=== PATIENT | female | born 1970 | race Caucasian/White ===

== ENCOUNTER → 2018-03-29 | Outpatient (CLI) | payer MEDICAID ==
--- NOTE | 2018-03-30 07:52 | MM ---
Reason for exam: screening (asymptomatic). Last mammogram was performed 3 years and 1 month ago. Physical Findings: A clinical breast exam by your physician is recommended on an annual basis and results should be correlated with mammographic findings. MG Screening Mammo w CAD Bilateral CC and MLO view(s) were taken. Prior study comparison: March 05, 2015, bilateral MG screening mammo w CAD. March 16, 2014, bilateral MG work up mamm w CAD BILAT. The breast tissue is heterogeneously dense. This may lower the sensitivity of mammography. Global asymmetry 12 o'clock left breast gradually increased from 2013. ASSESSMENT: Incomplete: need additional imaging evaluation, BI-RAD 0 RECOMMENDATION: Special view mammogram of the left breast. If lesion persists on supplemental views, image directed ultrasound is recommended. [facility] will attempt to contact patient to return for supplemental views and ultrasound if indicated.
== END | disposition home or self-care (01) ==
LOC: RADMAMWWP 06:49
PROVIDERS: ATTEND Internal Medicine Geriatric Medicine
DX: Z12.31 Encounter for screening mammogram for malignant neoplasm of breast (principal)
CPT/HCPCS: 77067

== ENCOUNTER → 2018-04-27 | Outpatient (CLI) | payer MEDICAID ==
--- NOTE | 2018-04-30 16:12 | MM ---
Reason for exam: additional evaluation requested from abnormal screening. Last mammogram was performed 1 month ago. Physical Findings: Nurse Summary: There is a 0.5 x 0.5 cm dominant mass at 1 o'clock. MG 3D Work Up W/Cad LT Spot compression CC, spot compression MLO, and LM view(s) were taken of the left breast. Prior study comparison: March 29, 2018, bilateral MG screening mammo w CAD. March 05, 2015, bilateral MG screening mammo w CAD. The breast tissue is heterogeneously dense. This may lower the sensitivity of mammography. There is a 24 mm lobulated density with indistinct margins in the left breast anterior middle central position. This does not go completely away on additional views. ASSESSMENT: Incomplete: need additional imaging evaluation, BI-RAD 0 RECOMMENDATION: Ultrasound of the left breast.
--- NOTE | 2018-04-30 16:16 | USB ---
US Breast Workup LT Left complete breast ultrasound includes all four quadrants, the retroareolar region and axilla. Finding demonstrates a 0.6 x 0.4 x 0.5 cm oval cystic lesion at 12 o'clock . These results were verbally communicated with the patient and result sheet given to the patient on 04/27/18. ASSESSMENT: Probably benign, BI-RAD 3 RECOMMENDATION: Ultrasound and follow-up diagnostic mammogram of the left breast in 6 months.
== END | disposition home or self-care (01) ==
LOC: RADMAMWWP 09:57
PROVIDERS: ATTEND Internal Medicine Geriatric Medicine
DX: R92.8 Other abnormal and inconclusive findings on diagnostic imaging of breast (principal)
CPT/HCPCS: 77061; 77065

== ENCOUNTER 2021-01-07 16:28 | Emergency (ER) | payer MEDICAID ==
[2021-01-07] MEDS ORDERED: LIDOCAINE 1% INJ 10MG/ML (20 ML MDV) SQ ONE (17:29)
--- NOTE | 2021-01-07 19:33 | ED ---
Skin/Abscess/FB HPI - General Chief complaint: Skin/Abscess/Foreign Body Stated complaint: skin issues/pain on side Time Seen by Provider: 01/07/21 17:19 Source: patient, RN notes reviewed Mode of arrival: ambulatory Limitations: no limitations - History of Present Illness Initial comments: Patient is a 50-year-old female that presents emergency department complaining of a right sided rib abscess patient notes that she thought she had a bug bite got infected patient was she went to Going got Keflex but has not gotten any better. She denied any other symptoms or complaints at this time. She was otherwise well-appearing. She notes that it is tender and has gotten slightly worse. She denied chest pain first breath headache nausea vomiting diarrhea comes patient fever fatigue chills. - Related Data Previous Rx's Medication Instructions Recorded Sulfamethox-Tmp 800-160Mg [Bactrim 1 each PO Q12HR #20 tab 01/07/21 Ds] Allergies Allergy/AdvReac Type Severity Reaction Status Date / Time iodine Allergy Rash/Hives Verified 01/07/21 17:06 Review of Systems ROS Statement: Those systems with pertinent positive or pertinent negative responses have been documented in the HPI. ROS Other: All systems not noted in ROS Statement are negative. Past Medical History Past Medical History: Asthma History of Any Multi-Drug Resistant Organisms: None Reported Past Surgical History: Cholecystectomy Past Psychological History: No Psychological Hx Reported Smoking Status: Never smoker Past Alcohol Use History: None Reported Past Drug Use History: None Reported General Exam Limitations: no limitations General appearance: alert, in no apparent distress, obese Head exam: Present: atraumatic, normocephalic, normal inspection Eye exam: Present: normal appearance, PERRL, EOMI. Absent: scleral icterus, conjunctival injection, periorbital swelling ENT exam: Present: normal exam, mucous membranes moist Neck exam: Present: normal inspection Respiratory exam: Present: normal lung sounds bilaterally. Absent: respiratory distress, wheezes, rales, rhonchi, stridor Cardiovascular Exam: Present: regular rate, normal rhythm, normal heart sounds. Absent: systolic murmur, diastolic murmur, rubs, gallop, clicks GI/Abdominal exam: Present: soft, normal bowel sounds. Absent: distended, tenderness, guarding, rebound, rigid Extremities exam: Present: normal inspection, full ROM, normal capillary refill. Absent: tenderness, pedal edema, joint swelling, calf tenderness Neurological exam: Present: alert, oriented X3 Psychiatric exam: Present: normal affect, normal mood Skin exam: Present: warm, dry, intact, normal color. Absent: rash Expanded Type of lesion: Present: abscess (Right upper abdomen measuring 4 cm x 4 cm.) Course Vital Signs 01/07/21 17:03 Temperature 98.9 F Pulse Rate 90 Respiratory 16 Rate Blood Pressure 194/89 O2 Sat by Pulse 98 Oximetry Procedures - Incision & Drainage Consent Obtained: verbal consent Site: abdomen (Right side over the ribs.) Anesthetic Used: lidocaine 1% Amount (mLs): 5 I&D Cleaning Method: Alcohol Wipe Sterile Field Used?: Yes Scalpel Used: #11 Needle Aspiration Performed?: Yes I&D Drainage Obtained: Pus, Blood Culture Obtained?: Yes Patient Tolerated Procedure: well, no complications Medical Decision Making - Medical Decision Making 50-year-old female with a right sided rib cage abscess. Lidocaine ordered. Patient tolerated incision and drainage well. She'll be sent and antibiotics to her pharmacy to go with her Keflex. Case discussed with Dr. Ambriz, patient discharge home in stable condition. Disposition Clinical Impression: Abscess Disposition: HOME SELF-CARE Condition: Stable Instructions (If sedation given, give patient instructions): Abscess (ED), Abscess Incision and Drainage (ED) Additional Instructions: Please return to the Emergency Department if symptoms worsen or any other concerns. Follow-up with primary care 1-2 days. Take antibiotics as prescribed until complete. Use warm compresses to keep it draining. Is patient prescribed a controlled substance at d/c from ED?: No Referrals: Guillermo Paz MD [Primary Care Provider] - 1-2 days Time of Disposition: 19:33
[2021-01-07 19:47] VITALS: BP 166/95; PULSE 77; RESP 18; TEMP 98.2
== END 2021-01-07 19:41 | disposition home or self-care (01) ==
LOC: EC 16:28
DX: L02.213 Cutaneous abscess of chest wall (principal); L02.211 Cutaneous abscess of abdominal wall; J45.909 Unspecified asthma, uncomplicated; Z88.8 Allergy status to other drugs, medicaments and biological substances; Z90.49 Acquired absence of other specified parts of digestive tract
CPT/HCPCS: 87070; 87205; 10060; 99282; J2001

== ENCOUNTER → 2021-10-31 | Outpatient (CLI) | payer MEDICAID ==
--- NOTE | 2021-10-31 12:15 | US ---
EXAMINATION TYPE: US liver DATE OF EXAM: 10/31/2021 COMPARISON: NONE CLINICAL HISTORY: 50-year-old female R17 Elevated total bilirubin, JAUNDICE. TECHNIQUE: Multiple sonographic images of the right upper quadrant are obtained. FINDINGS: EXAM MEASUREMENTS: Liver Length: 17.2 cm Gallbladder: Surgically absent CBD: 0.8 cm Right Kidney: 12.2 x 4.4 x 5.3 cm Pancreas: Portions visualized wnl, the pancreatic tail is obscured by bowel gas Liver: Borderline in size, echogenic and attenuating. Gallbladder: cholecystectomy Evidence for sonographic Ivy's sign: no CBD: echogenic foci in CBD measuring 5mm, dilated Right Kidney: there appears to be a superior hypoechoic mass measuring 5.2 x 5.3 x 6.0cm. No hydronep hrosis. IMPRESSION: 1. Borderline hepatomegaly (17.2 cm) with at least moderate hepatic steatosis. 2. A 5 mm echogenic focus projecting within the bile duct. Choledocholithiasis difficult to exclude. Correlate with alkaline phosphatase and bili levels. ERCP or MRCP if clinically indicated. The bile d uct itself is mildly dilated at 8 mm. This caliber may be acceptable given postcholecystectomy status . 3. Apparent hypoechoic mass measuring 6.0 cm upper pole of the right kidney. Further renal mass meghann col CT recommended to further evaluate.
== END | disposition home or self-care (01) ==
LOC: RADUSWWP 09:20
PROVIDERS: ATTEND Family Medicine
DX: R17 Unspecified jaundice (principal)
CPT/HCPCS: 76705; 99213

== ENCOUNTER → 2021-11-14 | Outpatient (CLI) | payer MEDICAID | END | disposition home or self-care (01) | LOC: RADCTMAIN 13:42 | PROVIDERS: ATTEND Family Medicine | DX: Z53.9 Procedure and treatment not carried out, unspecified reason (principal) ==

== ENCOUNTER → 2022-01-13 | Outpatient (CLI) | payer MEDICAID ==
--- NOTE | 2022-01-13 20:01 | MR ---
EXAMINATION TYPE: MR kidney wo/w con DATE OF EXAM: 01/13/2022 7:11 PM INDICATION: Patient age:Female; 51 years old; Reason for study: N28.89 OTHER SPECIFIED DISORDERS OF KIDNEY AND URE;. Abnormal US. COMPARISON: Ultrasound 10/31/2021 TECHNIQUE: Multiplanar multi-sequence imaging was performed with and without contrast. Post contrast imaging was performed IV Contrast: 10 cc Gadavist FINDINGS: LOWER CHEST: No gross irregularity. ABDOMEN Liver: Diffuse signal dropout on phase imaging involving the liver. Gallbladder and Bile ducts: Unremarkable. Pancreas: Unremarkable. Spleen: There is a T2 in apparent low T1 signal lesion within the spleen measuring up to 2.2 cm seen on postcontrast imaging only which does not demonstrate enhancement compared to background splenic ti ssue. Delayed imaging it becomes less apparent. Adrenal glands: A right adrenal 2.3 cm myelolipoma is suggested.. The left adrenal gland is unremarka ble. Kidneys: Superior right renal pole heterogenous mass which is predominantly intermediate T2 and low T 1 signal. Measures up to 7.4 cm is primarily exophytic off the superior renal pole. Postcontrast enha ncement demonstrates enhancement most pronounced along the periphery with some area of nonenhancement centrally which could represent cystic degeneration and/or necrosis. No evidence of involvement with in the renal vein. The tumor abuts the inferior margin of the liver. Stomach and Bowel: Few scattered clonic diverticula present. Peritoneum: No evidence of pneumoperitoneum, free fluid. Prominent portacaval lymph node measuring u p to 12 mm and gastropancreatic ligament lymph node measuring up to 11 mm. Vasculature: Unremarkable. No aortic aneurysm. Abdominal wall: Unremarkable. Musculoskeletal: The osseous structures appear intact. IMPRESSION: 1. Right superior renal pole mass concerning for renal cell carcinoma until proven otherwise. RENAL Nephrometry Score 8p. 2. Hepatic steatosis 3. Right adrenal myelolipoma suggested. 4. Indeterminate splenic lesion which is only seen on postcontrast T1 imaging and progressively appe ars to enhance. Findings may represent an atypical hemangioma versus sclerosing angiomatoid nodular t ransformation (CARLOTA). Attention on follow-up imaging.
== END | disposition home or self-care (01) ==
LOC: RADMRIMAIN 18:20
PROVIDERS: ATTEND Nurse Practitioner Family
DX: N28.89 Other specified disorders of kidney and ureter (principal)
CPT/HCPCS: 74183; A9585

== ENCOUNTER → 2022-02-24 | Outpatient (CLI) | payer MEDICAID ==
[2022-02-24 11:10] LABS: African American GFR (CKD) >90 (>60 ml/min/1.73 sqM); Blood Urea Nitrogen 9 mg/dL (7-17); Non-African American GFR(CKD) >90 (>60 ml/min/1.73 sqM)
--- NOTE | 2022-02-24 15:19 | CT ---
EXAMINATION TYPE: CT chest w con DATE OF EXAM: 02/24/2022 COMPARISON: MRI kidney 01/13/2022 HISTORY: 51-year-old female D41.01, kidney cancer newly dx with kidney failure TECHNIQUE: Contiguous axial scanning of the chest after the administration of 70 mL of Isovue 300. C oronal/sagittal reconstructions performed. CT DLP: 1050mGycm. Automatic exposure control utilized for a dose reduction. FINDINGS: Heart normal size without pericardial effusion. Aorta normal caliber with conventional arch vessel branching anatomy. No thoracic lymphadenopathy by CT size criteria. Suspicious 5 mm anterior right midlung pulmonary nodule, axial image 23. Suspicious 1.3 cm nodule lef t midlung along the major fissure, axial image 24. Approximately 4-5 adjacent satellite nodules measu ring up to 7 mm. 3 additional 3 nodules measuring 78 mm superior segment left lower lobe. No consolidation or pleural effusion. Visualized upper abdomen shows diffuse low-attenuation of the hepatic,. Patient's known right upper p ole renal mass measuring at least 7.4 cm, partially visualized. This may be larger compared to 6.7 cm on 01/13/2022. Cholecystectomy clips. Bones: No osseous destructive process. IMPRESSION: 1. A few pulmonary nodules, left greater than right. Measuring up to 1.3 cm. Given the patient's RCC, findings are suspicious for metastatic pulmonary nodules. 2. Hepatic steatosis. 3. Partially visualized known right upper pole renal mass. This may be slightly larger at 7.4 cm vers us 6.7 cm, previously.
== END | disposition home or self-care (01) ==
LOC: RADCTMAIN 10:11
PROVIDERS: ATTEND Urology
DX: D41.01 Neoplasm of uncertain behavior of right kidney (principal); R91.8 Other nonspecific abnormal finding of lung field; K76.0 Fatty (change of) liver, not elsewhere classified
CPT/HCPCS: 82565; 84520; 71260; 36415; Q9967

== ENCOUNTER → 2022-03-10 | Outpatient (CLI) | payer MEDICAID ==
[2022-03-10 19:48] LABS: Basophils # (A) 0.08 X 10*3/uL (0.00-0.10); Eosinophils # (A) 0.45 X 10*3/uL (0.04-0.35); Eosinophils % (A) 5.4 %; HCT 49.6 % (37.2-46.3); HGB 15.4 g/dL (12.0-15.0); Immature Grans, Automated 0.1 %; Lymphocytes # (A) 1.84 X 10*3/uL (0.90-5.00); Lymphocytes % (A) 22.1 %; MCH 25.4 pg (27.0-32.0); MCV 81.7 fL (80.0-97.0); Mean Platelet Volume 12.2 fL (9.5-12.2); Monocytes # (A) 0.49 X 10*3/uL (0.20-1.00); Monocytes % (A) 5.9 %; NRBC Per 100 WBC 0 /100 WBCS (0.0-0.0); Neutrophils # (A) 5.44 X 10*3/uL (1.80-7.70); Neutrophils % (A) 65.5 %; Platelet Count 168 X 10*3/uL (140-440); RBC 6.07 X 10*6/uL (4.10-5.20); RBC Morphology NORMAL; RDW 17.5 % (11.5-14.5); WBC 8.31 X 10*3/uL (4.50-10.00)
[2022-03-10 20:02] LABS: African American GFR (CKD) 85.2 (60.0-200.0); Anion Gap 17.1 mmol/L (10.00-18.00); BUN/Creat Ratio 10.33 Ratio (12.00-20.00); Blood Urea Nitrogen 9.3 mg/dL (9.0-27.0); Calcium 10.2 mg/dL (8.7-10.3); Carbon Dioxide 21.9 mmol/L (20.0-27.5); Non-African American GFR(CKD) 73.5 (60.0-200.0); Potassium 4.4 mmol/L (3.5-5.5)
== END | disposition home or self-care (01) ==
LOC: LABPAT 09:50
PROVIDERS: ATTEND Urology
DX: Z01.812 Encounter for preprocedural laboratory examination (principal); D41.01 Neoplasm of uncertain behavior of right kidney
CPT/HCPCS: 80048; 85025

== ENCOUNTER 2022-03-20 05:56 | Inpatient (IN) | payer MEDICAID ==
--- NOTE | 2022-03-19 21:13 | P.GSHP ---
History of Present Illness H&P Date: 03/19/22 Chief Complaint: Right renal mass The patient is a 51-year-old white female recently found to have a 7.4 cm right upper pole enhancing renal mass. She denies hematuria and flank pain. She was advised that the mass is likely malignant. CT scan of the chest shows several small pulmonary nodules. A PET/CT scan revealed the pulmonary lesions to be non-FDG avid. It is thus assumed that she does not have pulmonary metastases, though she is aware that this may be a false-negative study. Following a thorough discussion of these results, she has elected to undergo a right radical nephrectomy. - Constitutional Constitutional: Reports fatigue - Genitourinary (Female) Genitourinary: Denies flank pain, Denies hematuria Past Medical History Past Medical History: Asthma, Thyroid Disorder Additional Past Medical History / Comment(s): anemia, mass on kidney probable cancer, History of Any Multi-Drug Resistant Organisms: MRSA Date of last positivie culture/infection: 01/07/21 MDRO Source:: mrsa abdomen Past Surgical History: Cholecystectomy Past Anesthesia/Blood Transfusion Reactions: Motion Sickness Additional Past Anesthesia/Blood Transfusion Reaction / Comment(s): occasional motion sickness Smoking Status: Never smoker Medications and Allergies Home Medications Medication Instructions Recorded Confirmed Type Docusate [Colace] 1 tab PO DAILY 03/17/22 03/17/22 History Ferrous Sulfate [Feosol] 325 mg PO DAILY 03/17/22 03/17/22 History Fluticasone Nasal [place] [Flonase 1 spray INHALATION DAILY 03/17/22 03/17/22 History Nasal [place]] Levothyroxine Sodium [Synthroid] 50 mcg PO DAILY 03/17/22 03/17/22 History Loratadine 10 mg PO DAILY 03/17/22 03/17/22 History Umeclidinium Brm/Vilanterol Tr 1 puff INHALATION DAILY 03/17/22 03/17/22 History [Anoro Ellipta 62.5-25 Mcg INH] Allergies Allergy/AdvReac Type Severity Reaction Status Date / Time iodine Allergy Rash/Hives Verified 03/17/22 17:12 Surgical - Exam - General well developed, well nourished, no distress - Neck no masses, trachea midline - Respiratory normal respiratory effort - Abdomen Abdomen: soft, non tender, no guarding, no rigid, no rebound - Psychiatric oriented to time, oriented to person, oriented to place, speech is normal, memory intact Assessment and Plan (1) Neoplasm of uncertain behavior of right kidney Status: Acute Code(s): D41.01 - NEOPLASM OF UNCERTAIN BEHAVIOR OF RIGHT KIDNEY SNOMED Code(s): [id number] Plan: Right radical nephrectomy. The procedure has been reviewed in detail with the patient. She has been made aware of potential risks, which include anesthesia, bleeding, infection, bowel injury, hepatic injury, postoperative paralytic ileus, chylous ascites, and wound complications.
[2022-03-20] MEDS ORDERED: DEXAMETHASONE SOD PHOSPHATE 4 MG/ML 1 ML VIAL IV ONE (06:09)
[2022-03-20] MEDS ORDERED: HYDROmorphone 0.5 MG/0.5 ML SYRINGE IVP PRN (06:09)
[2022-03-20] MEDS ORDERED: ONDANSETRON 4 MG/2 ML VIAL IVP ONE (06:09)
[2022-03-20] MEDS ORDERED: LACTATED RINGERS 1,000 ML IV ONE ×4 (06:25→14:13)
[2022-03-20 06:56] LABS: INR 1.1 (<1.2); Prothrombin Time 11.1 sec (9.0-12.0)
[2022-03-20] MEDS ORDERED: SCOPOLAMINE 1 MG/72 HR PATCH TRANSDERM ONE (06:58)
[2022-03-20] MEDS ORDERED: MIDAZOLAM 2 MG/2 ML VIAL IVP ONE (07:04)
[2022-03-20] MEDS ORDERED: diphenhydrAMINE 50 MG/ML 1 ML VIAL IVP PRN (07:33)
[2022-03-20] MEDS ORDERED: NALOXONE 0.4 MG/ML 1 ML VIAL IV PRN (07:33)
[2022-03-20] MEDS ORDERED: NALBUPHINE 10 MG/ML (1 ML AMP) IV PRN (07:33)
[2022-03-20] MEDS ORDERED: LIDOCAINE 2% INJ 20 MG/ML (2 ML VIAL) ONE (07:35)
[2022-03-20] MEDS ORDERED: ALBUMIN HUMAN 5% (25gm) 500 ML VIAL IVPB ONE (07:35)
[2022-03-20] MEDS ORDERED: GLYCOPYRROLATE 0.2 MG/ML 2 ML VIAL ONE (07:35)
[2022-03-20] MEDS ORDERED: ePHEDrine 50 MG/ML 1 ML VIAL ONE (07:35)
[2022-03-20] MEDS ORDERED: ROCURONIUM 10 MG/ML (5 ML VIAL) IV ONE (07:35)
[2022-03-20] MEDS ORDERED: SUCCINYLCHOLINE CHLORIDE 200 MG/10 ML VIAL IV ONE (07:35)
[2022-03-20] MEDS ORDERED: MIDAZOLAM 2 MG/2 ML VIAL ONE (07:35)
[2022-03-20] MEDS ORDERED: PHENYLEPHRINE-0.9% NACL SYG 1,000 MCG/10 ML SYRINGE ONE (07:35)
[2022-03-20] MEDS ORDERED: PROPOFOL 10 MG/ML 20 ML VIAL IV ONE (07:35)
[2022-03-20] MEDS ORDERED: fentaNYL (PF) 50 MCG/ML 2 ML AMP ONE (07:35)
[2022-03-20] MEDS ORDERED: NEOSTIGMINE 1 MG/ML 10 ML VIAL ONE (07:35)
--- NOTE | 2022-03-20 07:38 | P.ANPRN ---
Procedure Note - Anesthesia - Epidural/Spinal Epidural Continuous Time Out Performed: Yes Date of Procedure: 03/20/22 Procedure Start Time: 07:03 Procedure Stop Time: : Location of Patient: PreOp Indication: Acute Post-Operative Pain, Requested by Surgeon (madi) Sedation Type: Sedate with meaningful contact maintained Preparation: Sterile Dressing Number of Attempts: 3 (attempt T10 x1, L1-2x2. Success at L1-2) Position: Sitting Catheter Depth at Skin (cm): 13 Catheter: Indwelling Needle Guage: 18 Injectate: lidocaine 1% 5cc. Narrative: 5cc Test dose. no CV no BUILDING CONSULTANT no paresthesias on injection. Patient tolerated procedure well. Blood Aspirated: No Pain Paresthesia on Injection Noted: No Events: Uneventful and Well Tolerated
[2022-03-20] MEDS: ROPIVACAINE 250 MG, HYDROMORPHONE (PF) 5 MG in SODIUM CHLORIDE 0.9% 200 ML EPIDURAL PRN ×3 (10:36→14:18)
[2022-03-20] MEDS ORDERED: HYDROmorphone 1 MG/ML 1 ML SYRINGE IVP PRN (10:42)
[2022-03-20] MEDS: DEXTROSE 5%-0.45% NACL 1,000 ML IV SCH (14:55)
--- NOTE | 2022-03-20 15:06 | P.OP ---
Date of Procedure: 03/20/22 Preoperative Diagnosis: Right renal mass Postoperative Diagnosis: Same Procedure(s) Performed: Right radical nephrectomy Anesthesia: SOLEDAD Surgeon: Elliott Saavedra Heat Seal Operator #1: Maadn Raza Estimated Blood Loss (ml): 750 IV fluids (ml): 2,400 Pathology: other (Right kidney and adrenal gland) Condition: stable Disposition: PACU Indications for Procedure: The patient is a 51-year-old white female recently found to have a 7.4 cm right upper pole enhancing renal mass. She denies hematuria and flank pain. She was advised that the mass is likely malignant. CT scan of the chest shows several small pulmonary nodules. A PET/CT scan revealed the pulmonary lesions to be non-FDG avid. It is thus assumed that she does not have pulmonary metastases, though she is aware that this may be a false-negative study. Following a thorough discussion of these results, she has elected to undergo a right radical nephrectomy. Operative Findings: Large right upper pole renal mass. No evidence of extrarenal disease. Description of Procedure: The patient was taken to the operating room and placed in the supine position. After being given general anesthesia, the abdomen was prepped and draped sterilely. A right-sided chevron incision was made using the scalpel. The Bovie electrocautery was used to incise the subcutaneous tissues and muscular layers of the abdominal wall down to the peritoneum. The peritoneum was then carefully entered, and opened the full length of the incision. The abdomen was examined, and no abnormalities were noted other than the renal mass. Spec ifically, there was no evidence of malignancy elsewhere within the abdomen. The Bookwalter retractor was used for exposure. The peritoneum was incised at the line of Toldt, and a Hieke maneuver was performed. This exposed the right kidney and the inferior vena cava. The gonadal vein was isolated. It was then ligated using 2-0 silk ties and divided. Dissection was then performed alongside the lateral aspect of the inferior vena cava. Lymphoadipose tissue was clipped and divided up to the renal hilum. There was no evidence of adenopathy. The hilar dissection was difficult. An artery to the lower pole of the right kidney was identified in addition to the main right renal artery. Both were ligated twice proximally and once distally using 2-0 silk ties and divided. The right renal vein was then likewise ligated twice proximally and distally. The remaining hilar tissues were clipped and divided at this time. The majority of the blood loss during the procedure occurred during the hilar dissection. Once the hilar dissection had been completed, the inferior aspect of the dissection was performed. The tail of Gerota's fascia was isolated, and the ureter was clipped and divided. Likewise, the gonadal vessels were ligated and divided. Blunt dissection was then performed to dissect the kidney off of the posterior abdominal wall. Superiorly, the dissection was performed cephalad to the adrenal gland so that the adrenal gland could be removed intact. These superior attachments were clipped and divided. This was somewhat difficult, given the patient's body habitus and the size of the tumor. After removing the specimen, a 1.5 centimeter capsular tear of the underside of the liver was noted, which bled lightly. This was mostly controlled with electrocautery, and Surgicel powder was then applied with pressure. Excellent hemostasis was attained. Additional Surgicel was placed over the superior attachments to the adrenal gland, though hemostasis was very good even before this was applied. The surgical field was examined for hemostasis. Hemostasis within the entire surgical field was excellent at this time. The Bookwalter retractor was removed. The abdominal contents were allowed to return to their normal location. Each individual muscle layer of the anterior abdominal wall was closed using #1 Vicryl suture in a running fashion. Hemostasis within the subcutaneous tissues was excellent. The skin was closed using beverly. A sterile gauze dressing was applied over the incision. All sponge and needle counts were correct. The patient tolerated the procedure well was taken to the recovery room in stable condition.
[2022-03-20] MEDS: LACTATED RINGERS 1,000 ML IV SCH (15:50)
[2022-03-21] MEDS: DEXTROSE 5%-0.45% NACL 1,000 ML IV SCH ×3 (00:55→11:02)
[2022-03-21] MEDS: LACTATED RINGERS 1,000 ML IV SCH (06:20)
[2022-03-21] MEDS: LEVOTHYROXINE 50 MCG TAB PO SCH (06:34)
[2022-03-21] MEDS: ROPIVACAINE 250 MG, HYDROMORPHONE (PF) 5 MG in SODIUM CHLORIDE 0.9% 200 ML EPIDURAL PRN (07:28)
[2022-03-21] MEDS: IPRATROPIUM 0.5 MG/2.5 ML NEBU INHALATION SCH ×4 (07:39→20:21)
[2022-03-21] MEDS: FORMOTEROL FUMARATE 20 MCG/2 ML NEBU INHALATION SCH ×2 (07:39→20:21)
[2022-03-21] MEDS: DOCUSATE 100 MG CAP PO SCH (09:22)
[2022-03-21] MEDS: FLUTICASONE 50MCG/SPRAY NASAL 16GM EA NOSTRIL SCH (09:22)
[2022-03-21] MEDS: LORATADINE 10 MG TAB PO SCH (09:22)
--- NOTE | 2022-03-21 09:47 | P.PN ---
Subjective Progress Note Date: 03/21/22 Principal diagnosis: Right renal mass The patient is a 51-year-old female recently found to have a 7.4 cm right upper pole enhancing renal mass. No hematuria or flank pain. She was advised that the mass is likely malignant. CT scan of the chest shows several small pulmonary nodules. A PET/CT scan revealed the pulmonary lesions to be non-FDG avid. It is thus assumed that she does not have pulmonary metastases, though she is aware that this may be a false-negative study. She went to the OR on 03/20/[address] Saavedra and had an elective right radical nephrectomy. She tolerated the procedure well and was sent to the PACU in stable condition. Objective - Vital Signs Vital signs: Vital Signs Temp 98.3 F 03/21/22 08:00 Pulse 78 03/21/22 08:05 Resp 16 03/21/22 08:00 BP 101/67 03/21/22 08:00 Pulse Ox 93 L 03/21/22 08:00 FiO2 Intake & Output 03/20/22 03/21/22 03/21/22 18:59 06:59 18:59 Intake Total 2603.1 122 Output Total 1050 200 Balance 1553.1 -78 Weight 110.2 kg Intake: IV 2603.1 Intake, IV Titration 122 Amount Ropivacaine 250 mg 122 Hydromorphone (Pf) 5 mg In Sodium Chloride 0.9% 200 ml @ Per Protocol EPIDURAL .Q0M PRN Rx#: [id number] Output: Urine 300 200 Estimated Blood Loss 750 Other: Voiding Method Indwelling Catheter Indwelling Catheter - Exam General: Well developed, well nourished. No acute distress. HEENT: Head is atraumatic, normocephalic. Lungs: Respirations even and nonlabored, 2L NC Abdomen/GI: Soft + incisional tenderness. : Rdz catheter draining clear yellow urine Skin: Warm and dry, abdominal dressing CDI Neurologic: Awake, alert and oriented times 3. CN II-XII grossly intact. No focal deficits. Psychiatric: Appropriate mood and affect. Assessment and Plan Assessment: POD#!. No acute events over night. She states her pain has been well controlled with her epidural. She was encouraged to increase her activity level today. She denies any nausea or vomiting. Tmax 100.0, she is on 2L NC, vitals stable. Instructed to use incentive spirometer and cough/deep breath. Rdz catheter draining clear yellow urine. Abdominal dressing CDI. CBC and BMP pending. Nursing staff updated with plan of care. (1) Right renal mass Current Visit: Yes Status: Acute Code(s): N28.89 - OTHER SPECIFIED DISORDERS OF KIDNEY AND URETER SNOMED Code(s): 573291579 Plan: - Follow up with pending lab work - Increase Activity - Clear liquid diet - Continue Epidural - Keep Rdz catheter - IS 10 x hour while awake - Wean off O2, Maintain SPO2 > 92% - Anticipate discharge in 24-48 hours Impression and plan of care have been directed as dictated by the signing physician. Erica Baker nurse practitioner acting as scribe for signing physician. Erica Baker [facility] Palliative Care/Urology Spectralink [phone] Email: [email or web address]
[2022-03-21 10:43] LABS: HCT 33.8 % (37.2-46.3); MCH 25.8 pg (27.0-32.0); MCHC 29.6 g/dL (32.0-37.0); MCV 87.1 fL (80.0-97.0); Mean Platelet Volume 11.7 fL (9.5-12.2); NRBC Per 100 WBC 0 /100 WBCS (0.0-0.0); Platelet Count 220 X 10*3/uL (140-440); RBC 3.88 X 10*6/uL (4.10-5.20); RDW 17.2 % (11.5-14.5); WBC 14.06 X 10*3/uL (4.50-10.00)
[2022-03-21 10:51] LABS: African American GFR (CKD) 23.6 (60.0-200.0); Anion Gap 11.3 mmol/L (10.00-18.00); BUN/Creat Ratio 7.88 Ratio (12.00-20.00); Blood Urea Nitrogen 20.5 mg/dL (9.0-27.0); Calcium 8.4 mg/dL (8.7-10.3); Carbon Dioxide 23.9 mmol/L (20.0-27.5); Non-African American GFR(CKD) 20.4 (60.0-200.0); Potassium 4.8 mmol/L (3.5-5.5)
--- NOTE | 2022-03-21 12:10 | P.PN ---
Progress Note - Text Progress Note Date: 03/21/22 Patient was seen and evaluated at bedside. Postop day # 1 status post right radical nephrectomy. Patient is comfortably lying on the bed. Rated pain levels are 3-4 out of 10 in severity. Moving extremities well without any difficulty. He denied any red flag symptoms, pain over the catheter site. Physical exam: Vital signs: stable, afebrile Catheter site: Clean, and intact Dressing. no tenderness over the catheter area. Moving lower extremities without difficulty. Platelet count 220 on 03/21/2022 Assessment: Acute postoperative pain secondary to right radical nephrectomy Plan: Continue epidural infusion solution at the rate of 9 mL per hour. We will continue epidural catheter 2 more day unless primary team planned to send the patient home then we will discontinue. Call anesthesia as needed.
[2022-03-22] MEDS: DEXTROSE 5%-0.45% NACL 1,000 ML IV SCH ×3 (00:57→10:50)
[2022-03-22] MEDS: LACTATED RINGERS 1,000 ML IV SCH (04:06)
[2022-03-22] MEDS: LEVOTHYROXINE 50 MCG TAB PO SCH (06:32)
--- NOTE | 2022-03-22 08:05 | P.PN ---
Subjective Progress Note Date: 03/22/22 Principal diagnosis: POD #2, s/p right radical nephrectomy The patient experienced tremor in her left arm while sleeping yesterday evening, per her . She states that this has resolved. She has no complaints at this time. Specifically, she reports minimal discomfort. She denies nausea, and is tolerating small amounts of clear liquids. She ambulated in her hospital room yesterday evening. Objective - Vital Signs Vital signs: Vital Signs Temp 98.2 F 03/22/22 02:04 Pulse 68 03/22/22 02:04 Resp 17 03/22/22 02:04 BP 133/78 03/22/22 02:04 Pulse Ox 95 03/22/22 02:50 FiO2 Intake & Output 03/21/22 03/21/22 03/22/22 06:59 18:59 06:59 Intake Total 122 Output Total 200 500 600 Balance -78 -500 -600 Intake: Intake, IV Titration 122 Amount Ropivacaine 250 mg 122 Hydromorphone (Pf) 5 mg In Sodium Chloride 0.9% 200 ml @ Per Protocol EPIDURAL .Q0M PRN Rx#: [id number] Output: Urine 200 500 600 Other: Voiding Method Indwelling Catheter Indwelling Catheter Indwelling Catheter - Constitutional General appearance: Present: cooperative, no acute distress - Gastrointestinal Gastrointestinal Comment(s): Soft, non-distended. Incision clean, dry, and intact. - Psychiatric Psychiatric: Present: A&O x's 3 - Labs CBC & Chem 7: 03/21/22 06:31 03/21/22 06:31 Labs: Abnormal Lab Results - Last 24 Hours (Table) 03/21/22 03/21/22 Range/Units 06:31 06:31 WBC 14.06 H (4.50-10.00) X 10*3/uL RBC 3.88 L (4.10-5.20) X 10*6/uL Hgb 10.0 L (12.0-15.0) g/dL Hct 33.8 L (37.2-46.3) % MCH 25.8 L (27.0-32.0) pg MCHC 29.6 L (32.0-37.0) g/dL RDW 17.2 H (11.5-14.5) % Creatinine 2.6 H (0.6-1.5) mg/dL Est GFR (CKD-EPI)AfAm 23.6 L (60.0-200.0) Est GFR (CKD-EPI)NonAf 20.4 L (60.0-200.0) BUN/Creatinine Ratio 7.88 L (12.00-20.00) Ratio Glucose 117 H (70-110) mg/dL Calcium 8.4 L (8.7-10.3) mg/dL Assessment and Plan (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 Labs will be repeated. Diet will be advanced as tolerated. She was encouraged to increase ambulation. The epidural catheter and Rdz catheter will be removed.
[2022-03-22] MEDS: FORMOTEROL FUMARATE 20 MCG/2 ML NEBU INHALATION SCH ×2 (08:31→21:24)
[2022-03-22] MEDS: IPRATROPIUM 0.5 MG/2.5 ML NEBU INHALATION SCH ×4 (08:31→21:24)
[2022-03-22] MEDS: DOCUSATE 100 MG CAP PO SCH (09:36)
[2022-03-22] MEDS: LORATADINE 10 MG TAB PO SCH (09:36)
[2022-03-22] MEDS: FLUTICASONE 50MCG/SPRAY NASAL 16GM EA NOSTRIL SCH (10:48)
[2022-03-22 11:37] LABS: Basophils # (A) 0.04 X 10*3/uL (0.00-0.10); Basophils % (A) 0.4 %; Eosinophils # (A) 0.07 X 10*3/uL (0.04-0.35); Eosinophils % (A) 0.7 %; HCT 30.8 % (37.2-46.3); HGB 9.1 g/dL (12.0-15.0); Immature Grans, Automated 0.5 %; Lymphocytes # (A) 1.21 X 10*3/uL (0.90-5.00); Lymphocytes % (A) 11.6 %; MCH 25.5 pg (27.0-32.0); MCHC 29.5 g/dL (32.0-37.0); MCV 86.3 fL (80.0-97.0); Monocytes # (A) 1.05 X 10*3/uL (0.20-1.00); Monocytes % (A) 10.1 %; NRBC Per 100 WBC 0 /100 WBCS (0.0-0.0); Neutrophils % (A) 76.7 %; Platelet Count 162 X 10*3/uL (140-440); RBC 3.57 X 10*6/uL (4.10-5.20); RDW 16.7 % (11.5-14.5); WBC 10.42 X 10*3/uL (4.50-10.00)
[2022-03-22 11:51] LABS: Anion Gap 9.4 mmol/L (10.00-18.00); BUN/Creat Ratio 9.47 Ratio (12.00-20.00); Blood Urea Nitrogen 19.7 mg/dL (9.0-27.0); Calcium 8.3 mg/dL (8.7-10.3); Carbon Dioxide 24.8 mmol/L (20.0-27.5); Non-African American GFR(CKD) 26.7 (60.0-200.0); Potassium 4.7 mmol/L (3.5-5.5)
--- NOTE | 2022-03-22 12:06 | P.PN ---
Progress Note - Text 03/22/22 1154am 51-year-old female status post right radical nephrectomy. Patient has an epidural catheter for postop pain control. She has a VAS of 2 with no motor or sensory deficits. Epidural DC'd as per the request of the surgeon.
[2022-03-22] MEDS: ONDANSETRON 4 MG/2 ML VIAL IVP PRN (14:34)
[2022-03-22] MEDS: HYDROmorphone 0.5 MG/0.5 ML SYRINGE IVP PRN (14:38)
[2022-03-22] MEDS: ACETAMINOPHEN TAB 500 MG TAB PO PRN (14:52)
[2022-03-23] MEDS: HYDROmorphone 0.5 MG/0.5 ML SYRINGE IVP PRN ×4 (00:59→18:35)
[2022-03-23] MEDS: ONDANSETRON 4 MG/2 ML VIAL IVP PRN ×2 (00:59→08:20)
[2022-03-23] MEDS: DEXTROSE 5%-0.45% NACL 1,000 ML IV SCH ×3 (01:05→20:14)
[2022-03-23] MEDS: LEVOTHYROXINE 50 MCG TAB PO SCH (06:17)
[2022-03-23] MEDS: LACTATED RINGERS 1,000 ML IV SCH (06:17)
[2022-03-23] MEDS: DOCUSATE 100 MG CAP PO SCH (07:29)
[2022-03-23] MEDS: LORATADINE 10 MG TAB PO SCH (07:30)
[2022-03-23 08:06] LABS: African American GFR (CKD) 56 (>60 ml/min/1.73 sqM); Anion Gap 7 mmol/L; Blood Urea Nitrogen 14 mg/dL (7-17); Calcium 8.3 mg/dL (8.4-10.2); Carbon Dioxide 26 mmol/L (22-30); Chloride 106 mmol/L (98-107); Glucose 122 mg/dL (74-99); Non-African American GFR(CKD) 48 (>60 ml/min/1.73 sqM); Potassium 4.7 mmol/L (3.5-5.1); Sodium 139 mmol/L (137-145)
[2022-03-23] MEDS: FORMOTEROL FUMARATE 20 MCG/2 ML NEBU INHALATION SCH ×2 (08:10→18:59)
[2022-03-23] MEDS: IPRATROPIUM 0.5 MG/2.5 ML NEBU INHALATION SCH ×4 (08:10→18:58)
[2022-03-23] MEDS: FLUTICASONE 50MCG/SPRAY NASAL 16GM EA NOSTRIL SCH (08:20)
[2022-03-23 08:28] LABS: Basophils % (A) 0 %; Eosinophils # (A) 0.1 k/uL (0-0.7); Eosinophils % (A) 1 %; HCT 34.5 % (34.0-46.0); HGB 10.9 gm/dL (11.4-16.0); Hypochromasia Moderate; Lymphocytes # (A) 1.1 k/uL (1.0-4.8); Lymphocytes % (A) 14 %; MCH 26.1 pg (25.0-35.0); MCHC 31.5 g/dL (31.0-37.0); MCV 82.8 fL (80.0-100.0); Mean Platelet Volume 10.8; Monocytes # (A) 0.7 k/uL (0-1.0); Monocytes % (A) 9 %; Neutrophils # (A) 5.9 k/uL (1.3-7.7); Neutrophils % (A) 74 %; Platelet Count 179 k/uL (150-450); RBC 4.17 m/uL (3.80-5.40); RDW 15.3 % (11.5-15.5); WBC 7.9 k/uL (3.8-10.6)
[2022-03-23] MEDS: ACETAMINOPHEN TAB 500 MG TAB PO PRN (10:29)
--- NOTE | 2022-03-23 21:26 | P.PN ---
Subjective Progress Note Date: 03/23/22 Principal diagnosis: POD #3, s/p right radical nephrectomy The patient was seen this morning. At that time, she reported incisional discomfort and mild nausea, but otherwise felt well. She had eaten a small amount of breakfast, and was ambulating in the hallway. She was passing flatus but had not had a bowel movement. Objective - Vital Signs Vital signs: Vital Signs Temp 98.3 F 03/23/22 18:58 Pulse 79 03/23/22 19:14 Resp 17 03/23/22 18:58 BP 135/82 03/23/22 19:51 Pulse Ox 99 03/23/22 18:58 FiO2 Intake & Output 03/23/22 03/23/22 03/24/22 06:59 18:59 06:59 Output Total 900 Balance -900 Output: Urine 900 Other: Voiding Method Toilet # Voids 3 1 - Constitutional General appearance: Present: cooperative, no acute distress - Gastrointestinal Gastrointestinal Comment(s): Soft, non-distended. Incision clean, dry, and intact. 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 Labs results indicate improvements in the hemoglobin and serum creatinine levels. I am hopeful that she will ready for discharge home tomorrow.
[2022-03-23] MEDS ORDERED: HYDROcodone/APAP 5-325MG 1 EACH TAB PO PRN (21:58)
[2022-03-24] MEDS: HYDROcodone/APAP 5-325MG 1 EACH TAB PO PRN ×2 (02:29→09:26)
[2022-03-24] MEDS: LEVOTHYROXINE 50 MCG TAB PO SCH (06:21)
[2022-03-24] MEDS: LACTATED RINGERS 1,000 ML IV SCH (06:22)
[2022-03-24] MEDS: IPRATROPIUM 0.5 MG/2.5 ML NEBU INHALATION SCH (07:59)
[2022-03-24] MEDS: FORMOTEROL FUMARATE 20 MCG/2 ML NEBU INHALATION SCH (07:59)
[2022-03-24 08:16] VITALS: BP 170/87; PULSE 64; RESP 16; TEMP 98.5
--- NOTE | 2022-03-24 08:23 | P.DS ---
Providers Date of admission: 03/20/22 05:56 Expected date of discharge: 03/24/22 Attending physician: Elliott Saavedra Primary care physician: Jose Carlos Navarro - Discharge Diagnosis(es) (1) Neoplasm of uncertain behavior of right kidney Current Visit: No Status: Acute Hospital Course: On the day of admission, the patient underwent an uncomplicated right radical nephrectomy. The perioperative course was unremarkable. She had a low-grade fever in the early postoperative period, attributed to atelectasis. The epidural catheter and Rdz catheter were removed on the second postoperative day. Ambulation gradually improved, and diet was slowly advanced. At the time of discharge, she was ambulating well. She was tolerating diet in small amounts, with no nausea. She was passing flatus but had not had a bowel movement. The incision was clean, dry, and intact. Procedures: Right radical nephrectomy on 03/20/2022 Patient Condition at Discharge: Good Plan - Discharge Summary Discharge Rx Participant: No New Discharge Prescriptions: New HYDROcodone/APAP 5-325MG [[place] 5-325] 1 - 2 tab PO Q4HR PRN #12 tab PRN Reason: Pain No Action Levothyroxine Sodium [Synthroid] 50 mcg PO DAILY Umeclidinium Brm/Vilanterol Tr [Anoro Ellipta 62.5-25 Mcg INH] 1 puff INHALATION DAILY Fluticasone Nasal [place] [Flonase Nasal [place]] 1 spray INHALATION DAILY Ferrous Sulfate [Feosol] 325 mg PO DAILY Loratadine 10 mg PO DAILY Docusate [Colace] 1 tab PO DAILY Discharge Medication List Docusate [Colace] 1 tab PO DAILY 03/17/22 [History] Ferrous Sulfate [Feosol] 325 mg PO DAILY 03/17/22 [History] Fluticasone Nasal [place] [Flonase Nasal [place]] 1 spray INHALATION DAILY 03/17/22 [History] Levothyroxine Sodium [Synthroid] 50 mcg PO DAILY 03/17/22 [History] Loratadine 10 mg PO DAILY 03/17/22 [History] Umeclidinium Brm/Vilanterol Tr [Anoro Ellipta 62.5-25 Mcg INH] 1 puff INHALATION DAILY 03/17/22 [History] HYDROcodone/APAP 5-325MG [[place] 5-325] 1 - 2 tab PO Q4HR PRN #12 tab 03/24/22 [Rx] Follow up Appointment(s)/Referral(s): Elliott Saavedra MD [STAFF PHYSICIAN] - 03/28/22 Patient Instructions/Handouts: *Surgery [facility] - Scopalamine Patch Instructions Activity/Diet/Wound Care/Special Instructions: Diet as tolerated. Drink plenty of fluids. Okay to shower. No lifting, driving, or strenuous activity. Discharge Disposition: HOME SELF-CARE
[2022-03-24] MEDS: DOCUSATE 100 MG CAP PO SCH (09:26)
[2022-03-24] MEDS: LORATADINE 10 MG TAB PO SCH (09:26)
--- NOTE | 2022-03-26 08:45 | CDI ---
Documentation Clarification Form Date: 03/26/2022 08:19:00 AM From: Antonia Vazquez Admit Date: 03/20/2022 05:56:00 AM Patient Name: Kathy Vaughan Visit Number: [id number] Discharge Date: 03/24/2022 10:30:00 AM ATTENTION: The Clinical Documentation Specialists (CDI) and [facility] Coding Staff appreciate your assistance in clarifying documentation. Please respond to the clarification below the line at the bottom and electronically sign. The CDI & [facility] Coding staff will review the response and follow-up if needed. Please note: Queries are made part of the Legal Health Record. If you have any questions, please contact the author of this message via ITS. Dr. 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 Coding guidelines do not allow coding professionals to code based on pathology results; therefore, clarification is requested. History/risk factors: documentation of neoplasm of uncertain behavior Clinical Indicators: Path report positive for malignancy Treatment: Radical Right nephrectomy and removal of right adrenal gland Please clarify if you agree with the pathology report diagnosis of Clear cell renal cell carcinoma right kidney: [ X] Yes [ ] No [ ] Other (please specify) [ ] Unable to determine MTDD
== END 2022-03-24 10:30 | disposition home or self-care (01) | DRG 657 ==
LOC: 2ORMAIN 05:56 → 4SSUR 14:09
PROVIDERS: ADMIT Urology; ATTEND Urology
PROC: 0GT30ZZ Resection of Right Adrenal Gland, Open Approach (ICD-10-PCS; principal; 2022-03-20 07:40)
PROC: 0TT00ZZ Resection of Right Kidney, Open Approach (ICD-10-PCS; principal; 2022-03-20 07:40)
DX: C64.1 Malignant neoplasm of right kidney, except renal pelvis (principal); J98.11 Atelectasis; Z68.41 Body mass index [BMI] 40.0-44.9, adult; J45.909 Unspecified asthma, uncomplicated; Z79.890 Hormone replacement therapy; R91.8 Other nonspecific abnormal finding of lung field; E07.9 Disorder of thyroid, unspecified; Z88.8 Allergy status to other drugs, medicaments and biological substances; Z91.011 Allergy to milk products; Z86.14 Personal history of Methicillin resistant Staphylococcus aureus infection; E66.9 Obesity, unspecified; D64.9 Anemia, unspecified
CPT/HCPCS: 80048; 85025; 85027; 85610; 86850; 86900; 86901; 88307; 94640; 94760

== ENCOUNTER 2023-12-20 08:27 | Emergency (ER) | payer MEDICAID ==
[2023-12-20 08:39] VITALS: TEMP 97.9
--- NOTE | 2023-12-20 09:00 | ED ---
General Adult HPI - General Chief complaint: Seizure Stated complaint: siezure Time Seen by Provider: 12/20/23 08:40 Source: patient, RN notes reviewed, old records reviewed Mode of arrival: ambulatory Limitations: no limitations - History of Present Illness Initial comments: 53-year-old female who has been having slurred speech for the last 2 days acco rding to herself and her family. However the family states currently the speech seems fine. Patient woke up this morning had some twitching in the left eye and then stated she was unable to speak and she started feeling very weird thought she passed out and may be seized but the patient states she never was unconscious she remembers everything she was just unable to communicate to her this lasted approximately 10 to 15 minutes. Patient states those symptoms have not resolved. Patient denies any headache patient denies any extremity weakness or numbness. Patient [place] any chest pain difficult breathing shortness of breath. Patient is any fever chills or cough. - Related Data Home Medications Medication Instructions Recorded Confirmed Docusate [Colace] 1 tab PO DAILY 03/17/22 03/17/22 Ferrous Sulfate [Feosol] 325 mg PO DAILY 03/17/22 03/17/22 Fluticasone Nasal [place] [Flonase 1 spray INHALATION DAILY 03/17/22 03/17/22 Nasal [place]] Levothyroxine Sodium [Synthroid] 50 mcg PO DAILY 03/17/22 03/17/22 Loratadine 10 mg PO DAILY 03/17/22 03/17/22 Umeclidinium Brm/Vilanterol Tr 1 puff INHALATION DAILY 03/17/22 03/17/22 [Anoro Ellipta 62.5-25 Mcg INH] Previous Rx's Medication Instructions Recorded HYDROcodone/APAP 5-325MG [[place] 1 - 2 tab PO Q4HR PRN #12 tab 03/24/22 5-325] Allergies Allergy/AdvReac Type Severity Reaction Status Date / Time iodine Allergy Rash/Hives Verified 12/20/23 08:39 Milk Containing Products Allergy Rash/Hives Verified 12/20/23 08:39 (Dairy) [Dairy] Review of Systems ROS Statement: Those systems with pertinent positive or pertinent negative responses have been documented in the HPI. ROS Other: All systems not noted in ROS Statement are negative. Past Medical History Past Medical History: Asthma, Cancer Additional Past Medical History / Comment(s): Kidney CA History of Any Multi-Drug Resistant Organisms: MRSA Date of last positivie culture/infection: 01/07/21 MDRO Source:: mrsa abdomen Past Surgical History: Cholecystectomy Past Anesthesia/Blood Transfusion Reactions: Motion Sickness Additional Past Anesthesia/Blood Transfusion Reaction / Comment(s): occasional motion sickness Past Psychological History: No Psychological Hx Reported Smoking Status: Never smoker Past Alcohol Use History: None Reported Past Drug Use History: None Reported General Exam - General Exam Comments Initial Comments: GENERAL: Patient is well-developed and well-nourished. Patient is nontoxic and well- hydrated and is in mild distress. ENT: Neck is soft and supple. No significant lymphadenopathy is noted. Oropharynx is clear. Moist mucous membranes. Neck has full range of motion without eliciting any pain. EYES: The sclera were anicteric and conjunctiva were pink and moist. Extraocular movements were intact and pupils were equal round and reactive to light. Eyelids were unremarkable. PULMONARY: Unlabored respirations. Good breath sounds bilaterally. No audible rales rhonchi or wheezing was noted. CARDIOVASCULAR: There is a regular rate and rhythm without any murmurs gallops or rubs. ABDOMEN: Soft and nontender with normal bowel sounds. SKIN: Skin is clear with no lesions or rashes and otherwise unremarkable. NEUROLOGIC: Patient is alert and oriented x3. Cranial nerves II through XII are grossly intact. Motor and sensory are also intact. Normal speech, volume and content. Symmetrical smile. [id number] testing is normal bilaterally MUSCULOSKELETAL: Normal extremities with adequate strength and full range of motion. No lower extremity swelling or edema. No calf tenderness. LYMPHATICS: No significant lymphadenopathy is noted PSYCHIATRIC: Normal psychiatric evaluation. Limitations: no limitations Course Vital Signs 12/20/23 08:36 Temperature 97.9 F Pulse Rate 81 Respiratory 20 Rate Blood Pressure 145/89 O2 Sat by Pulse 99 Oximetry Medical Decision Making - Medical Decision Making EKG is interpreted by myself read EKG shows a sinus rhythm at 74 bpm parables 135 QRS 91 QT interval 380 QTc is 407. Patient EKG shows no ST segment elevation or depression. Was pt. sent in by a medical professional or institution (, PA, DATABASE DBA, urgent care, hospital, or [place] health care facility...) When possible be specific @ -No Did you speak to anyone other than the patient for history (EMS, parent, family, police, friend...)? What history was obtained from this source @ -No Did you review nursing and triage notes (agree or disagree)? Why? @ -I reviewed and agree with nursing and triage notes Were old charts reviewed (outside hosp., previous admission, EMS record, old EKG, old radiological studies, urgent care reports/EKG's, [place] health care facility records)? Report findings @ -No old charts were reviewed Differential Diagnosis? @ -Differential CVA Ischemic stroke, hemorrhagic stroke, brain tumor, atypical migraine, Wernicke's encephalopathy, seizure, multiple sclerosis, meningitis, encephalitis, hypoglycemia, Guillain-Buck, electrolytes disturbance, myasthenia gravis.... This is not meant to be an all-inclusive list EKG interpreted by me (3pts min.). @ -As above X-rays interpreted by me (1pt min.). @ -Chest x-ray shows a right upper lobe mass CT interpreted by me (1pt min.). @ -CT of the brain shows a hemorrhagic bleed in the right frontal region. Patient CT of the head and neck showed no occlusive disease however it does look at the lung and there does appear to be a right upper lobe mass with lymphadenopathy U/S interpreted by me (1pt. min.). @ -None done What testing was considered but not performed or refused? (CT, X-rays, U/S, labs)? Why? @ -None What meds were considered but not given or refused? Why? @ -None Did you discuss the management of the patient with other professionals (professionals i.e. , PA, DATABASE DBA, lab, RT, psych nurse, delinquency prevention social worker, builder beam, teacher, environmental conservation officer, pillowcase sewer)? Give summary @ -I spoke with [facility] Bansal in the ER excepting the transfer. I spoke with the radiologist and once he saw the head and neck CT that showed mass in the lung he believes a hemorrhagic area in the frontal region of the brain is probably a metastatic mass with hemorrhage Was smoking cessation discussed for >3mins.? @ -No Was critical care preformed (if so, how long)? @ -35 minutes Were there social determinants of health that impacted care today? How? (Homelessness, low income, unemployed, alcoholism, drug addiction, transportation, low edu. Level, literacy, decrease access to med. care, [facility], rehab)? @ -No Was there de-escalation of care discussed even if they declined (Discuss DNR or withdrawal of care, Hospice)? DNR status @ -No What co-morbidities impacted this encounter? (DM, HTN, Smoking, COPD, CAD, Cancer, CVA, ARF, Chemo, Hep., AIDS, mental health diagnosis, sleep apnea, morbid obesity)? @ -None Was patient admitted / discharged? Hospital course, mention meds given and route, prescriptions, significant lab abnormalities, going to OR and other pertinent info. @ -Patient was asymptomatic he continued to have clear speech in our emergency department. Patient will be transferred [facility]. Undiagnosed new problem with uncertain prognosis? @ -No Drug Therapy requiring intensive monitoring for toxicity (Heparin, Nitro, Insulin, Cardizem)? @ -No Were any procedures done? @ -No Diagnosis/symptom? @ -Hemorrhagic intracranial bleed Acute, or Chronic, or Acute on Chronic? @ -Acute Uncomplicated (without systemic symptoms) or Complicated (systemic symptoms)? @ -Default Side effects of treatment? @ -No Exacerbation, Progression, or Severe Exacerbation? @ -No Poses a threat to life or bodily function? How? (Chest pain, [place], [place], pneumonia, PE, COPD, DKA, ARF, appy, cholecystitis, CVA, Diverticulitis, Homicidal, S uicidal, threat to staff... and all critical care pts) @ -Yes this can lead to further bleeding and Diagnosis/symptom? @ -Lung mass Acute, or Chronic, or Acute on Chronic? @ -Acute Uncomplicated (without systemic symptoms) or Complicated (systemic symptoms)? @ -Comp Side effects of treatment? @ -None Exacerbation, Progression, or Severe Exacerbation] @ -No Poses a threat to life or bodily function? @ -Yes this can lead to more metastatic disease and morbidity and mortality - Lab Data Result diagrams: 12/20/23 09:12/20/23 09:09 Lab Results 12/20/23 12/20/23 12/20/23 Range/Units 09:09 09:09 09:09 WBC 5.7 (3.8-10.6) k/uL RBC 5.02 (3.80-5.40) m/uL Hgb 13.5 (11.4-16.0) gm/dL Hct 42.8 (34.0-46.0) % MCV 85.4 (80.0-100.0) fL MCH 26.9 (25.0-35.0) pg MCHC 31.6 (31.0-37.0) g/dL RDW 13.9 (11.5-15.5) % Plt Count 190 (150-450) k/uL MPV 8.5 Neutrophils % 59 % Lymphocytes % 24 % Monocytes % 6 % Eosinophils % 9 % Basophils % 1 % Neutrophils # 3.4 (1.3-7.7) k/uL Lymphocytes # 1.4 (1.0-4.8) k/uL Monocytes # 0.3 (0-1.0) k/uL Eosinophils # 0.5 (0-0.7) k/uL Basophils # 0.1 (0-0.2) k/uL PT 10.6 (10.0-12.5) sec INR 1.0 (<1.2) APTT 23.6 (22.0-30.0) sec Sodium 142 (137-145) mmol/L Potassium 5.0 (3.5-5.1) mmol/L Chloride 109 H (98-107) mmol/L Carbon Dioxide 22 (22-30) mmol/L Anion Gap 11 mmol/L BUN 16 (7-17) mg/dL Creatinine 1.01 (0.52-1.04) mg/dL Est GFR (CKD-EPI)AfAm 73 (>60 ml/min/1.73 sqM) Est GFR (CKD-EPI)NonAf 63 (>60 ml/min/1.73 sqM) Glucose 113 H (74-99) mg/dL Calcium 9.4 (8.4-10.2) mg/dL Total Bilirubin 0.8 (0.2-1.3) mg/dL AST 33 (14-36) U/L ALT 14 (4-34) U/L Alkaline Phosphatase 52 (38-126) U/L Creatine Kinase 113 (30-135) U/L Troponin I (0.000-0.034) ng/mL Total Protein 8.0 (6.3-8.2) g/dL Albumin 4.5 (3.5-5.0) g/dL 12/20/23 Range/Units 09:09 WBC (3.8-10.6) k/uL RBC (3.80-5.40) m/uL Hgb (11.4-16.0) gm/dL Hct (34.0-46.0) % MCV (80.0-100.0) fL MCH (25.0-35.0) pg MCHC (31.0-37.0) g/dL RDW (11.5-15.5) % Plt Count (150-450) k/uL MPV Neutrophils % % Lymphocytes % % Monocytes % % Eosinophils % % Basophils % % Neutrophils # (1.3-7.7) k/uL Lymphocytes # (1.0-4.8) k/uL Monocytes # (0-1.0) k/uL Eosinophils # (0-0.7) k/uL Basophils # (0-0.2) k/uL PT (10.0-12.5) sec INR (<1.2) APTT (22.0-30.0) sec Sodium (137-145) mmol/L Potassium (3.5-5.1) mmol/L Chloride (98-107) mmol/L Carbon Dioxide (22-30) mmol/L Anion Gap mmol/L BUN (7-17) mg/dL Creatinine (0.52-1.04) mg/dL Est GFR (CKD-EPI)AfAm (>60 ml/min/1.73 sqM) Est GFR (CKD-EPI)NonAf (>60 ml/min/1.73 sqM) Glucose (74-99) mg/dL Calcium (8.4-10.2) mg/dL Total Bilirubin (0.2-1.3) mg/dL AST (14-36) U/L ALT (4-34) U/L Alkaline Phosphatase (38-126) U/L Creatine Kinase (30-135) U/L Troponin I <0.012 (0.000-0.034) ng/mL Total Protein (6.3-8.2) g/dL Albumin (3.5-5.0) g/dL Critical Care Time Critical Care Time: Yes Total Critical Care Time: 35 Disposition Clinical Impression: Intracranial hemorrhage, Lung mass Disposition: OTHER INSTITUTION NOT DEFINED Referrals: Jose Carlos Navarro DO [Primary Care Provider] - 1-2 days Time of Disposition: 11:39 - Out of Hospital Transfer - Req. Specs Out of Hospital Transfer - Requested Specifics: Other Emergency Center ([facility])
[2023-12-20] MEDS: FAMOTIDINE 20 MG/2 ML VIAL IV STA (09:21)
[2023-12-20] MEDS: diphenhydrAMINE 50 MG/ML 1 ML VIAL IVP STA (09:21)
[2023-12-20] MEDS: methylPREDNISolone SOD SUCCI 125 MG/2 ML VIAL IV STA (09:21)
[2023-12-20] MEDS: SODIUM CHLORIDE 0.9% 500 ML 500 ML IV STA (09:21)
[2023-12-20 09:22] LABS: Basophils # (A) 0.1 k/uL (0-0.2); Basophils % (A) 1 %; Eosinophils # (A) 0.5 k/uL (0-0.7); Eosinophils % (A) 9 %; HCT 42.8 % (34.0-46.0); HGB 13.5 gm/dL (11.4-16.0); Lymphocytes # (A) 1.4 k/uL (1.0-4.8); Lymphocytes % (A) 24 %; MCH 26.9 pg (25.0-35.0); MCHC 31.6 g/dL (31.0-37.0); MCV 85.4 fL (80.0-100.0); Mean Platelet Volume 8.5; Monocytes # (A) 0.3 k/uL (0-1.0); Monocytes % (A) 6 %; Neutrophils # (A) 3.4 k/uL (1.3-7.7); Neutrophils % (A) 59 %; Platelet Count 190 k/uL (150-450); RBC 5.02 m/uL (3.80-5.40); RDW 13.9 % (11.5-15.5); WBC 5.7 k/uL (3.8-10.6)
[2023-12-20 09:34] LABS: ALT 14 U/L (4-34); African American GFR (CKD) 73 (>60 ml/min/1.73 sqM); Albumin 4.5 g/dL (3.5-5.0); Anion Gap 11 mmol/L; Blood Urea Nitrogen 16 mg/dL (7-17); Calcium 9.4 mg/dL (8.4-10.2); Carbon Dioxide 22 mmol/L (22-30); Chloride 109 mmol/L (98-107); Creatine Kinase 113 U/L (30-135); Glucose 113 mg/dL (74-99); Non-African American GFR(CKD) 63 (>60 ml/min/1.73 sqM); Partial Thromboplastin Time 23.6 sec (22.0-30.0); Prothrombin Time 10.6 sec (10.0-12.5); Sodium 142 mmol/L (137-145); Total Bilirubin 0.8 mg/dL (0.2-1.3)
[2023-12-20 09:37] LABS: AST 33 U/L (14-36); Alkaline Phosphatase 52 U/L (38-126)
[2023-12-20] MEDS: ONDANSETRON 4 MG/2 ML VIAL IVP STA (09:41)
--- NOTE | 2023-12-20 10:31 | CT ---
EXAMINATION TYPE: CT brain wo con DATE OF EXAM: 12/20/2023 COMPARISON: None HISTORY: NEURO DEFICITS, SLURRING OF WORDS, LT SIDE DROOPING, EYE TWITCHING, STARTED LAST NIGHT. GIORGI ES ANY STROKE HX, HX OF SEIZURES. CT DLP: 1158.6 mGycm Automated exposure control for dose reduction was used. FINDINGS: The ventricles, basal cisterns and sulci over the convexities are within normal limits and there is n o mass effect or shift of midline structures. There is a focal area of decreased density involving the cortex and subcortical white matter in the p osterior right frontal lobe. It is associated with a focal area of increased density consistent with acute hemorrhage. The posterior fossa is grossly normal. The intraorbital contents appear normal. Visualized paranasal sinuses and mastoid air cells are well aerated. IMPRESSION: Acute right posterior frontal infarct with acute hemorrhage. There is no mass effect or shift of the midline structures.
--- NOTE | 2023-12-20 10:36 | XR ---
EXAMINATION TYPE: XR chest 2V DATE OF EXAM: 12/20/2023 COMPARISON: NONE HISTORY: Altered mental status TECHNIQUE: Frontal and lateral views of the chest are obtained. FINDINGS: The lungs are clear. There is no pleural effusion or pneumothorax. Heart and pulmonary vasculature are normal. There is a chronic rotator cuff tear of the left shoulder. IMPRESSION: 1. No acute cardiopulmonary disease. 2. Chronic rotator cuff tear of the left shoulder.
--- NOTE | 2023-12-20 11:07 | CT ---
CTA head and neck. HISTORY: Neurologic deficit, acute stroke suspected. COMPARISON: None TECHNIQUE: Multiple axial images were obtained from the thoracic inlet through the head following an eventful administration of nonionic IV contrast. The exam was performed according to the CTA [facility] nt protocol. FINDINGS: The brachiocephalic origins are widely patent and no significant stenosis. There is no significant stenosis of the common or internal carotid arteries within the neck. There is no stenosis of the vertebral arteries. Intracranially, there is no stenosis, segmental occlusion, sizable aneurysm sac or vascular malformat ion. In the imaged portion of the lungs, there is a 3.3 x 2.2 cm ill-defined mass in the right lung apex a nteriorly. There are multiple additional bilateral pulmonary nodules the largest of which are found i n the left lung and approximately 13 mm in size. There is a 12 to 13 mm right hilar enlarged lymph no de Findings are consistent with neoplasm, likely primary lung neoplasm with multiple pulmonary metastas is. With the discovery of these lung findings, the abnormality in the brain CT of the same date sugge sts possibly the presence of a branching metastasis in the posterior left frontal lobe as opposed to a hemorrhagic infarct. IMPRESSION:. 1. No evidence of occlusive disease or stenosis in the carotid arteries in the neck or intercerebral arteries described above. 2. Multiple lung masses highly suspicious for neoplasm as described above. 3. Right hilar lymphadenopathy as described above. 4. As opposed to hemorrhagic infarct in the posterior right frontal lobe as reported on the head CT o f the same date, these findings suggest the possibility of a hemorrhagic metastasis. NASCET criteria was used in interpretation of this exam?
[2023-12-20 12:04] VITALS: BP 154/86; PULSE 80; RESP 19
== END 2023-12-20 12:26 | disposition other institution (70) ==
LOC: EC 08:27
CPT/HCPCS: 36415; 70450; 70496; 70498; 71046; 80053; 82550; 84484; 85025; 85610; 85730; 93005; 96361; 96374; 96375; 99291

== ENCOUNTER 2024-01-10 09:35 | Inpatient (IN) | payer MEDICAID ==
--- NOTE | 2024-01-10 12:03 | ED ---
Recheck HPI - General Chief Complaint: Recheck/Abnormal Lab/Rx Stated Complaint: Peg tube issue Time Seen by Provider: 01/10/24 12:02 Source: patient, family, EMS, RN notes reviewed Mode of arrival: EMS Limitations: altered mental status - History of Present Illness Initial Comments: 53-year-old female presented to the ER via EMS from [facility] for evaluation of PEG tube malfunction. Patient accidentally pulled out her PEG tube this morning. Patient had PEG tube placement at [facility] approximately 2 weeks ago due to CVA. Patient is denying any current pain. - Related Data Home Medications Medication Instructions Recorded Confirmed Ferrous Sulfate [Feosol] 325 mg PEG/G-TUBE DAILY 03/17/22 01/10/24 Levothyroxine Sodium [Synthroid] 50 mcg PEG/G-TUBE DAILY 03/17/22 01/10/24 Loratadine 10 mg PEG/G-TUBE DAILY 03/17/22 01/10/24 Acetaminophen Tab [Tylenol] 650 mg PEG/G-TUBE Q4H PRN 01/10/24 01/10/24 Albuterol Nebulized [Ventolin 2.5 mg INHALATION RT-Q6H PRN 01/10/24 01/10/24 Nebulized] Atorvastatin [Lipitor] 10 mg PEG/G-TUBE HS 01/10/24 01/10/24 Insulin Glargine [Lantus Vial] 5 unit SQ DAILY 01/10/24 01/10/24 Insulin Lispro See Protocol SQ Q6H 01/10/24 01/10/24 Magnesium Hydroxide [Milk of 7,200 mg PEG/G-TUBE DAILY PRN 01/10/24 01/10/24 Magnesia Concentrate] Melatonin 3 mg PEG/G-TUBE HS 01/10/24 01/10/24 Menthol-Zinc Oxide Oint 1 applic TOPICAL BID 01/10/24 01/10/24 [Calmoseptine Ointment] Na Phos,M-B/Na Phos,Di-Ba [Fleet 133 ml RECTAL DAILY PRN 01/10/24 01/10/24 Adult] Omeprazole 2mg/Ml Solution 40 mg PEG/G-TUBE DAILY 01/10/24 01/10/24 Sodium Bicarbonate Tab 650 mg PEG/G-TUBE TID 01/10/24 01/10/24 Tamsulosin [Flomax] 0.4 mg PEG/G-TUBE DAILY 01/10/24 01/10/24 bisacodyL [Dulcolax] 10 mg RECTAL DAILY PRN 01/10/24 01/10/24 dexAMETHasone [Decadron] 4 mg PEG/G-TUBE Q6H 01/10/24 01/10/24 levETIRAcetam ORAL SOLN [Keppra 500 mg PEG/G-TUBE Q12H 01/10/24 01/10/24 Oral Soln] ondansetron HCL [Zofran Oral Soln] 4 mg PEG/G-TUBE Q8H PRN 01/10/24 01/10/24 Allergies Allergy/AdvReac Type Severity Reaction Status Date / Time iodine Allergy Rash/Hives Verified 01/10/24 13:53 Milk Containing Products Allergy Rash/Hives Verified 01/10/24 13:53 (Dairy) [Dairy] Review of Systems ROS Statement: Those systems with pertinent positive or pertinent negative responses have been documented in the HPI. ROS Other: All systems not noted in ROS Statement are negative. Past Medical History Past Medical History: Asthma, Cancer Additional Past Medical History / Comment(s): Kidney CA History of Any Multi-Drug Resistant Organisms: MRSA Date of last positivie culture/infection: 01/07/21 MDRO Source:: mrsa abdomen Past Surgical History: Cholecystectomy Past Anesthesia/Blood Transfusion Reactions: Motion Sickness Additional Past Anesthesia/Blood Transfusion Reaction / Comment(s): occasional motion sickness Past Psychological History: No Psychological Hx Reported Smoking Status: Never smoker Past Alcohol Use History: None Reported Past Drug Use History: None Reported General Exam Limitations: altered mental status General appearance: alert, in no apparent distress Head exam: Present: atraumatic, normocephalic, normal inspection Respiratory exam: Present: normal lung sounds bilaterally. Absent: respiratory distress, wheezes, rales, rhonchi, stridor Cardiovascular Exam: Present: regular rate, normal rhythm, normal heart sounds. Absent: systolic murmur, diastolic murmur, rubs, gallop, clicks GI/Abdominal exam: Present: soft, normal bowel sounds, other (PEG tube with sanderson catheter in place LLQ). Absent: distended, tenderness, guarding, rebound, rigid Extremities exam: Present: normal inspection, full ROM, normal capillary refill. Absent: tenderness, pedal edema, joint swelling, calf tenderness Neurological exam: Present: alert Skin exam: Present: warm, dry, intact, normal color. Absent: rash Course Vital Signs 01/10/24 01/10/24 09:39 14:51 Temperature 98.4 F 98.2 F Pulse Rate 78 74 Respiratory 16 18 Rate Blood Pressure 85/55 89/48 O2 Sat by Pulse 92 L 98 Oximetry - Reevaluation(s) Reevaluation #1: 01/10/24 12:03 Case discussed with on-call general surgery, Dr. Guardado, who evaluated patient in the ER and attempted to place PEG tube at bedside. He will take patient to the OR for endoscopic placement at this time. is agreeable. 01/10/24 14:23 Case discussed with on-call general surgery, Dr. Guardado. He states patient needs to be admitted to him surgical placement was unsuccessful. Patient will need further inpatient workup. Medical Decision Making - Medical Decision Making Was pt. sent in by a medical professional or institution (, PA, REGULATORY SPECIALIST, urgent care, hospital, or detention...) When possible be specific @ -No Did you speak to anyone other than the patient for history (EMS, parent, family, police, friend...)? What history was obtained from this source @ - aiding in HPI and past medical history. Did you review nursing and triage notes (agree or disagree)? Why? @ -I reviewed and agree with nursing and triage notes Were old charts reviewed (outside hosp., previous admission, EMS record, old EKG, old radiological studies, urgent care reports/EKG's, detention records)? Report findings @ -No old charts were reviewed Differential Diagnosis (chest pain, altered mental status, abdominal pain women, abdominal pain men, vaginal bleeding, weakness, fever, dyspnea, syncope, headache, dizziness, GI bleed, back pain, seizure, CVA, palpatations, mental health, musculoskeletal)? @ -PEG tube malfunction, cellulitis, abscess, fistula This list is not meant to be all-inclusive EKG interpreted by me (3pts min.). @ -None done X-rays interpreted by me (1pt min.). @ -None done CT interpreted by me (1pt min.). @ -None done U/S interpreted by me (1pt. min.). @ -None done What testing was considered but not performed or refused? (CT, X-rays, U/S, labs)? Why? @ -None What meds were considered but not given or refused? Why? @ -None Did you discuss the management of the patient with other professionals (professionals i.e. , PA, REGULATORY SPECIALIST, lab, RT, psych nurse, social professionals, retail service representative, teacher, chief digital officer, supportive employment case manager)? Give summary @ -Yes, case discussed with on-call general surgery, Dr. Guardado. He evaluated patient at bedside and attempted to reinsert PEG tube without success. Patient will be taken to the OR for PEG tube placement with Dr. Guardado. Case discussed with Dr. Roberts after surgical attempt to replace PEG tube. He states patient will need to be admitted under general surgery for further evaluation. Was smoking cessation discussed for >3mins.? @ -No Was critical care preformed (if so, how long)? @ -No Were there social determinants of health that impacted care today? How? (Homelessness, low income, unemployed, alcoholism, drug addiction, transportation, low edu. Level, literacy, decrease access to med. care, halfway, rehab)? @ -No Was there de-escalation of care discussed even if they declined (Discuss DNR or withdrawal of care, Hospice)? DNR status @ -No What co-morbidities impacted this encounter? (DM, HTN, Smoking, COPD, CAD, Cancer, CVA, ARF, Chemo, Hep., AIDS, mental health diagnosis, sleep apnea, morbid obesity)? @ -CVA/renal mass/PEG tube in place Was patient admitted / discharged? Hospital course, mention meds given and route, prescriptions, significant lab abnormalities, going to OR and other pertinent info. @ -Taken to the OR/admitted. 53-year-old female presenting to the ER via EMS from [facility] for evaluation of PEG tube malfunction. Patient pulled out her PEG tube earlier this morning. Patient denying any current pain. Vitals upon arrival temperature 98.4, heart rate 78, respiratory 16, blood pressure 85/55, oxygen saturation 98% on room air. Patient no signs of acute distress and freely moving on stretcher. Exam remarkable for a 2cm incision with a Sanderson catheter exiting in left upper quadrant. No surrounding erythema or concern of infection. As PEG tube was placed approximately 2 weeks ago I reached out to on-call general surgery, Dr. Guardado. He evaluated the patient at bedside and attempted to reinsert the PEG tube without success. He will take patient to the OR for PEG tube placement today. is agreeable. Case discussed with ED attending, . Case discussed with Dr. Guardado post surgical intervention who states patient will be admitted for further evaluation as tube was unable to be placed in the OR. Undiagnosed new problem with uncertain prognosis? @ -No Drug Therapy requiring intensive monitoring for toxicity (Heparin, Nitro, Insulin, Cardizem)? @ -No Were any procedures done? @ -No Diagnosis/symptom? @ -PEG tube malfunction Acute, or Chronic, or Acute on Chronic? @ -Acute Uncomplicated (without systemic symptoms) or Complicated (systemic symptoms)? @ -Complicated Side effects of treatment? @ -No Exacerbation, Progression, or Severe Exacerbation? @ -No Poses a threat to life or bodily function? How? (Chest pain, USA, ME, pneumonia, PE, COPD, DKA, ARF, appy, cholecystitis, CVA, Diverticulitis, Homicidal, Suicidal, threat to staff... and all critical care pts) @ -No Disposition Clinical Impression: PEG tube malfunction Disposition: ADMITTED IP TO THIS HOSP Condition: Stable Time of Disposition: 12:15
--- NOTE | 2024-01-10 13:00 | P.GSCN ---
History of Present Illness Consult date: 01/10/24 Reason for Consult: PEG tube malfunction History of present illness: 53-year-old female presented to the ER via EMS from [facility] for evaluation of PEG tube malfunction. Patient accidentally pulled out her PEG tube this morning. Patient had PEG tube placement at [facility] approximately 2 weeks ago due to CVA. Patient is denying any current pain. Review of Systems - Constitutional Reports as per HPI Past Medical History Past Medical History: Asthma, Cancer Additional Past Medical History / Comment(s): Kidney CA History of Any Multi-Drug Resistant Organisms: MRSA Year Discovered:: 01/07/21 MDRO Source:: mrsa abdomen Past Surgical History: Cholecystectomy Past Anesthesia/Blood Transfusion Reactions: Motion Sickness Additional Past Anesthesia/Blood Transfusion Reaction / Comm: occasional motion sickness Past Psychological History: No Psychological Hx Reported Smoking Status: Never smoker Past Alcohol Use History: None Reported Past Drug Use History: None Reported Medications and Allergies Home Medications Medication Instructions Recorded Confirmed Type Docusate [Colace] 1 tab PO DAILY 03/17/22 03/17/22 History Ferrous Sulfate [Feosol] 325 mg PO DAILY 03/17/22 03/17/22 History Fluticasone Nasal [place] [Flonase 1 spray INHALATION DAILY 03/17/22 03/17/22 History Nasal [place]] Levothyroxine Sodium [Synthroid] 50 mcg PO DAILY 03/17/22 03/17/22 History Loratadine 10 mg PO DAILY 03/17/22 03/17/22 History Umeclidinium Brm/Vilanterol Tr 1 puff INHALATION DAILY 03/17/22 03/17/22 History [Anoro Ellipta 62.5-25 Mcg INH] HYDROcodone/APAP 5-325MG [Marks 1 - 2 tab PO Q4HR PRN #12 tab 03/24/22 Rx 5-325] Allergies Allergy/AdvReac Type Severity Reaction Status Date / Time iodine Allergy Rash/Hives Verified 12/20/23 08:39 Milk Containing Products Allergy Rash/Hives Verified 12/20/23 08:39 (Dairy) [Dairy] Surgical - Exam Osteopathic Statement: *. No significant issues noted on an osteopathic structural exam other than those noted in the History and Physical/Consult. Vital Signs Temp Pulse Resp BP Pulse Ox 98.4 F 78 16 85/55 92 L 01/10/24 09:39 01/10/24 09:39 01/10/24 09:39 01/10/24 09:39 01/10/24 09:39 - General general no acute distress Cardiovascular regular rhythm Pulmonary nonlabored Abdomen soft, rotund, nondistended, nontender to palpation, no guarding or rebound tenderness, previous PEG tube site spilling out gastric contents Assessment and Plan Assessment: at the 3-year-old female with malfunctioning PEG tube Endoscopy urgently as patient has gastric contents is going out If successful stable for discharge Time with Patient: Greater than 30
[2024-01-10] MEDS ORDERED: LIDOCAINE 1% INJ 10MG/ML (20 ML MDV) ONE (13:26)
[2024-01-10] MEDS ORDERED: PROPOFOL 10 MG/ML 20 ML VIAL IV ONE (13:26)
[2024-01-10] MEDS ORDERED: PHENYLEPHRINE-0.9% NACL SYG 1,000 MCG/10 ML SYRINGE ONE (13:26)
[2024-01-10] MEDS: SODIUM CHLORIDE 0.9% 500 ML 500 ML IV ONE ×2 (13:51→14:20)
[2024-01-10] MEDS: SODIUM CHLORIDE 0.9% 1,000 ML IV ONE (15:55)
[2024-01-11] MEDS: MORPHINE SULFATE 2 MG/ML SYRINGE IVP PRN (05:02)
[2024-01-11 10:16] LABS: Basophils % (A) 0 %; Eosinophils # (A) 0.1 k/uL (0-0.7); Eosinophils % (A) 0 %; HCT 30.7 % (34.0-46.0); Lymphocytes # (A) 0.8 k/uL (1.0-4.8); Lymphocytes % (A) 6 %; MCH 28.2 pg (25.0-35.0); MCHC 33.4 g/dL (31.0-37.0); MCV 84.5 fL (80.0-100.0); Mean Platelet Volume 11.8; Monocytes # (A) 0.8 k/uL (0-1.0); Monocytes % (A) 5 %; Neutrophils # (A) 12.7 k/uL (1.3-7.7); Neutrophils % (A) 88 %; Platelet Count 150 k/uL (150-450); RBC 3.63 m/uL (3.80-5.40); RDW 15.9 % (11.5-15.5); WBC 14.5 k/uL (3.8-10.6)
[2024-01-11 10:23] LABS: HGB 10.2 gm/dL (11.4-16.0)
[2024-01-11] MEDS ORDERED: NA PHOS,M-B/NA PHOS,DI-BA 133 ML ENEMA RECTAL PRN (10:27)
[2024-01-11] MEDS ORDERED: MAGNESIUM HYDROXIDE 2,400 MG/30 ML CUP PEG/G-TUBE PRN (10:27)
[2024-01-11] MEDS ORDERED: bisacodyL 10 MG SUPP RECTAL PRN (10:27)
[2024-01-11 10:30] LABS: African American GFR (CKD) >90 (>60 ml/min/1.73 sqM); Anion Gap 8 mmol/L; Blood Urea Nitrogen 36 mg/dL (7-17); Calcium 9.2 mg/dL (8.4-10.2); Carbon Dioxide 19 mmol/L (22-30); Chloride 108 mmol/L (98-107); Glucose 107 mg/dL (74-99); Non-African American GFR(CKD) >90 (>60 ml/min/1.73 sqM); Sodium 135 mmol/L (137-145)
[2024-01-11] MEDS: dexAMETHasone 4 MG TAB PEG/G-TUBE SCH (11:02)
[2024-01-11] MEDS: levETIRAcetam ORAL SOLN 500 MG/5 ML CUP PEG/G-TUBE SCH (11:02)
[2024-01-11] MEDS: LEVOTHYROXINE 50 MCG TAB PEG/G-TUBE SCH (11:07)
[2024-01-11] MEDS ORDERED: DEXAMETHASONE SOD PHOSPHATE 4 MG/ML 1 ML VIAL IVP SCH (12:00)
--- NOTE | 2024-01-11 14:35 | P.PN ---
Subjective Progress Note Date: 01/11/24 CHIEF COMPLAINT: PEG tube malfunction HISTORY OF PRESENT ILLNESS: Patient status post new PEG tube placement. PEG tube is currently to drainage. Patient lying in bed comfortably. No evidence of distress. Afebrile. WBC 14.5 Hgb 10.2 platelets 150 sodium 135 potassium 5.0 creatinine 0.7 PHYSICAL EXAM: VITAL SIGNS: Reviewed. GENERAL: Well-developed in no acute distress. ABDOMEN: Soft. Nondistended. PEG tube site clean dry and intact NEUROLOGIC: Alert and oriented. Cranial nerves II through XII grossly intact. ASSESSMENT: 1. Malfunctioning PEG tube status post new PEG tube insertion 2. History of CVA PLAN: -Continue PEG tube to drainage -Recommend decompression further another 24 hours -Okay for meds through PEG tube today -Possibly start tube feeds tomorrow -Continue to monitor Physician Technology Analyst note has been reviewed by physician. Signing provider agrees with the documented findings, assessment, and plan of care. Objective - Vital Signs Vital signs: Vital Signs Temp 98.3 F 01/11/24 07:14 Pulse 79 01/11/24 07:14 Resp 17 01/11/24 07:14 BP 93/63 01/11/24 07:14 Pulse Ox 98 01/11/24 07:14 FiO2 Intake & Output 01/10/24 01/11/24 01/11/24 18:59 06:59 18:59 Intake Total 400 Output Total 200 425 Balance 200 -425 Weight 98.883 kg Intake: IV 400 Output: Urine 200 425 Other: Voiding Method Indwelling Catheter Indwelling Catheter # Bowel Movements 1 1 1 - Labs CBC & Chem 7: 01/11/24 09:41 01/11/24 09:41 Labs: Abnormal Lab Results - Last 24 Hours (Table) 01/11/24 01/11/24 Range/Units 09:41 09:41 WBC 14.5 H (3.8-10.6) k/uL RBC 3.63 L (3.80-5.40) m/uL Hgb 10.2 L D (11.4-16.0) gm/dL Hct 30.7 L (34.0-46.0) % RDW 15.9 H (11.5-15.5) % Neutrophils # 12.7 H (1.3-7.7) k/uL Lymphocytes # 0.8 L (1.0-4.8) k/uL Sodium 135 L (137-145) mmol/L Chloride 108 H (98-107) mmol/L Carbon Dioxide 19 L (22-30) mmol/L BUN 36 H (7-17) mg/dL Glucose 107 H (74-99) mg/dL
[2024-01-11] MEDS: SODIUM CHLORIDE 0.9% 1,000 ML IV SCH (14:36)
[2024-01-11] MEDS: MELATONIN 1 MG TAB PO SCH (21:30)
[2024-01-11] MEDS: ATORVASTATIN 10 MG TAB PEG/G-TUBE SCH (21:30)
--- NOTE | 2024-01-12 04:47 | P.CONS ---
History of Present Illness - Reason for Consult Consult date: 01/11/24 Medical management, PEG tube replacement - History of Present Illness This is a 53-year-old female who presented to the emergency department with PEG tube accidentally being pulled out. Patient was at [facility] for rehab status post CVA a few weeks ago at [facility] and had been undergoing therapy. Patient follows with Dr. Navarro in the outpatient setting with a past medical history of asthma, kidney cancer. at the bedside reports she received a PEG tube at [facility] after the CVA. Labs reviewed and within normal limits other than a mildly elevated white count of 14.5. Patient is afebrile and does not appear septic at all clinically. Patient has had PEG tube replaced by general surgery and a Rdz bag has been placed on for drainage and being monitored as there was quite a bit of sediment noted per surgery. Home medications will be reviewed and resumed as appropriate once verified. Patient is currently n.p.o. at this time. Okay for medications per surgery through the PEG tube. REVIEW OF SYSTEMS: Does not speak much after CVA recently CONSTITUTIONAL: No fever, no malaise, no fatigue. HEENT: No recent visual problems or hearing problems. Denied any sore throat. CARDIOVASCULAR: No chest pain, orthopnea, PND, no palpitations, no syncope. PULMONARY: No shortness of breath, no cough, no hemoptysis. GASTROINTESTINAL: No diarrhea, no nausea, no vomiting, no abdominal pain. NEUROLOGICAL: No headaches, no weakness, no numbness. HEMATOLOGICAL: Denies any bleeding or petechiae. GENITOURINARY: Denies any burning micturition, frequency, or urgency. MUSCULOSKELETAL/RHEUMATOLOGICAL: Denies any joint pain, swelling, or any muscle pain. ENDOCRINE: Denies any polyuria or polydipsia. The rest of the 14-point review of systems is negative. PHYSICAL EXAMINATION: GENERAL: The patient is alert and oriented x1-2, not in any acute distress. Well developed, elderly appearing, ill-appearing, obese HEENT: Pupils are round and equally reacting to light. EOMI. No scleral icterus. No conjunctival pallor. Normocephalic, atraumatic. No pharyngeal erythema. No thyromegaly. CARDIOVASCULAR: S1 and S2 present. No murmurs, rubs, or gallops. PULMONARY: Diminished breath sounds bilaterally otherwise chest is clear to auscultation, no wheezing or crackles. ABDOMEN: Soft, nontender, nondistended, normoactive bowel sounds. No palpable organomegaly. PEG tube noted MUSCULOSKELETAL: No joint swelling or deformity. EXTREMITIES: No cyanosis, clubbing, or pedal edema. NEUROLOGICAL: Gross neurological examination did not reveal any focal deficits. SKIN: No rashes. 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 Okay for meds and tube feedings will be resumed tomorrow once cleared by surgery Case management following and plan to return to [facility] on discharge for continued PT/OT therapy status post CVA Home medications reviewed and resumed as appropriate as patient is maintained on steroids as family reports she has kidney cancer with mets to the brain Recommend follow-up on labs, white count was mildly elevated although no fevers and does not appear toxic or septic in any way. We will continue to follow with general surgery during hospitalization. Thank you kindly for this consultation. The impression and plan of care has been dictated by Bernie High, Nurse Practitioner as directed. Dr. Antolin MD I have performed a history and examination and MDM of this patient, discussed the same with the dictator, and agree with the dictator's assessment and plan as written ,documented as a scribe. Based on total visit time, I have performed more than 50% of the visit. Past Medical History Past Medical History: Asthma, Cancer Additional Past Medical History / Comment(s): Kidney CA History of Any Multi-Drug Resistant Organisms: MRSA Year Discovered:: 01/07/21 MDRO Source:: mrsa abdomen Past Surgical History: Cholecystectomy Past Anesthesia/Blood Transfusion Reactions: Motion Sickness Additional Past Anesthesia/Blood Transfusion Reaction / Comm: occasional motion sickness Past Psychological History: No Psychological Hx Reported Smoking Status: Never smoker Past Alcohol Use History: None Reported Past Drug Use History: None Reported Medications and Allergies Home Medications Medication Instructions Recorded Confirmed Type Ferrous Sulfate [Feosol] 325 mg PEG/G-TUBE DAILY 03/17/22 01/10/24 History Levothyroxine Sodium [Synthroid] 50 mcg PEG/G-TUBE DAILY 03/17/22 01/10/24 History Loratadine 10 mg PEG/G-TUBE DAILY 03/17/22 01/10/24 History Acetaminophen Tab [Tylenol] 650 mg PEG/G-TUBE Q4H PRN 01/10/24 01/10/24 History Albuterol Nebulized [Ventolin 2.5 mg INHALATION RT-Q6H PRN 01/10/24 01/10/24 History Nebulized] Atorvastatin [Lipitor] 10 mg PEG/G-TUBE HS 01/10/24 01/10/24 History Insulin Glargine [Lantus Vial] 5 unit SQ DAILY 01/10/24 01/10/24 History Insulin Lispro See Protocol SQ Q6H 01/10/24 01/10/24 History Magnesium Hydroxide [Milk of 7,200 mg PEG/G-TUBE DAILY PRN 01/10/24 01/10/24 History Magnesia Concentrate] Melatonin 3 mg PEG/G-TUBE HS 01/10/24 01/10/24 History Menthol-Zinc Oxide Oint 1 applic TOPICAL BID 01/10/24 01/10/24 History [Calmoseptine Ointment] Na Phos,M-B/Na Phos,Di-Ba [Fleet 133 ml RECTAL DAILY PRN 01/10/24 01/10/24 History Adult] Omeprazole 2mg/Ml Solution 40 mg PEG/G-TUBE DAILY 01/10/24 01/10/24 History Sodium Bicarbonate Tab 650 mg PEG/G-TUBE TID 01/10/24 01/10/24 History Tamsulosin [Flomax] 0.4 mg PEG/G-TUBE DAILY 01/10/24 01/10/24 History bisacodyL [Dulcolax] 10 mg RECTAL DAILY PRN 01/10/24 01/10/24 History dexAMETHasone [Decadron] 4 mg PEG/G-TUBE Q6H 01/10/24 01/10/24 History levETIRAcetam ORAL SOLN [Keppra 500 mg PEG/G-TUBE Q12H 01/10/24 01/10/24 History Oral Soln] ondansetron HCL [Zofran Oral Soln] 4 mg PEG/G-TUBE Q8H PRN 01/10/24 01/10/24 History Allergies Allergy/AdvReac Type Severity Reaction Status Date / Time iodine Allergy Rash/Hives Verified 01/10/24 13:53 Milk Containing Products Allergy Rash/Hives Verified 01/10/24 13:53 (Dairy) [Dairy] Physical Exam Vitals: Vital Signs Temp Pulse Pulse Resp BP BP Pulse Ox 01/11/24 07:14 98.3 F 79 17 93/63 98 01/11/24 01:17 97.0 F L 75 16 104/66 98 01/10/24 19:10 98.1 F 72 16 108/70 98 01/10/24 16:03 80 114/76 01/10/24 15:48 74 135/71 01/10/24 15:25 97.4 F L 81 17 79/50 100 01/10/24 14:51 98.2 F 74 18 89/48 98 Intake and Output 01/10/24 01/11/24 01/11/24 22:59 06:59 14:59 Output Total 425 Balance -425 Output: Urine 425 Other: Voiding Method Indwelling Catheter Indwelling Catheter # Bowel Movements 1 1 Results CBC & Chem 7: 01/11/24 09:41 01/11/24 09:41 Labs: Abnormal Lab Results - Last 24 Hours (Table) 01/11/24 01/11/24 Range/Units 09:41 09:41 WBC 14.5 H (3.8-10.6) k/uL RBC 3.63 L (3.80-5.40) m/uL Hgb 10.2 L D (11.4-16.0) gm/dL Hct 30.7 L (34.0-46.0) % RDW 15.9 H (11.5-15.5) % Neutrophils # 12.7 H (1.3-7.7) k/uL Lymphocytes # 0.8 L (1.0-4.8) k/uL Sodium 135 L (137-145) mmol/L Chloride 108 H (98-107) mmol/L Carbon Dioxide 19 L (22-30) mmol/L BUN 36 H (7-17) mg/dL Glucose 107 H (74-99) mg/dL
[2024-01-12] MEDS: LORATADINE 10 MG TAB PEG/G-TUBE SCH (08:57)
[2024-01-12] MEDS: TAMSULOSIN 0.4 MG CAP.ER.24H PO SCH (08:57)
[2024-01-12] MEDS: FERROUS SULFATE 325 MG TAB PO SCH (08:58)
[2024-01-12 13:01] LABS: African American GFR (CKD) >90 (>60 ml/min/1.73 sqM); Anion Gap 6 mmol/L; Blood Urea Nitrogen 32 mg/dL (7-17); Carbon Dioxide 23 mmol/L (22-30); Chloride 106 mmol/L (98-107); Glucose 123 mg/dL (74-99); Non-African American GFR(CKD) >90 (>60 ml/min/1.73 sqM); Sodium 135 mmol/L (137-145)
[2024-01-12 13:02] LABS: Potassium 4.3 mmol/L (3.5-5.1)
--- NOTE | 2024-01-12 14:06 | P.PN ---
Subjective Progress Note Date: 01/12/24 CHIEF COMPLAINT: PEG tube malfunction HISTORY OF PRESENT ILLNESS: Patient status post new PEG tube placement. PEG tube is currently to drainage. Had 475 mL drained through the night. Patient is lying in bed comfortably. Does not appear to be in any pain. Afebrile. Hypotensive. BP 78/49 sodium 135 potassium 4.3 creatinine 0.67 PHYSICAL EXAM: VITAL SIGNS: Reviewed. GENERAL: Well-developed in no acute distress. ABDOMEN: Soft. Nondistended. PEG tube site clean dry and intact. Old PEG tube hole with clearish drainage. peg tube to drainage with clearish output NEUROLOGIC: Alert and oriented. Cranial nerves II through XII grossly intact. ASSESSMENT: 1. Malfunctioning PEG tube status post new PEG tube insertion 2. History of CVA PLAN: -Continue PEG tube to drainage -Hold on tube feeds at this time. Awaiting old PEG tube site to heal -Continue to monitor -1 L fluid bolus ordered for hypotension -Check CBC now and check labs in AM Physician Health Informatics Advisor note has been reviewed by physician. Signing provider agrees with the documented findings, assessment, and plan of care. Objective - Vital Signs Vital signs: Vital Signs Temp 97.6 F 01/12/24 07:00 Pulse 86 01/12/24 13:11 Resp 16 01/12/24 13:11 BP 78/49 01/12/24 13:11 Pulse Ox 100 01/12/24 13:11 FiO2 Intake & Output 01/11/24 01/12/24 01/12/24 18:59 06:59 18:59 Intake Total 0 Output Total 975 Balance -975 0 Intake: Oral 0 Output: Gastric Drainage 475 Urine 500 Other: Voiding Method Indwelling Catheter Indwelling Catheter # Bowel Movements 1 1 - Labs CBC & Chem 7: 01/11/24 09:41 01/12/24 11:54 Labs: Abnormal Lab Results - Last 24 Hours (Table) 01/12/24 Range/Units 11:54 Sodium 135 L (137-145) mmol/L BUN 32 H (7-17) mg/dL Glucose 123 H (74-99) mg/dL
[2024-01-12] MEDS: SODIUM CHLORIDE 0.9% 1,000 ML IV ONE (14:20)
[2024-01-12] MEDS ORDERED: MIDODRINE 5 MG TAB PO PRN (15:33)
[2024-01-12 16:13] LABS: Basophils % (A) 0 %; Eosinophils % (A) 0 %; HCT 31.7 % (34.0-46.0); HGB 10.9 gm/dL (11.4-16.0); Hypochromasia Slight; Lymphocytes # (A) 0.7 k/uL (1.0-4.8); Lymphocytes % (A) 4 %; MCH 30.6 pg (25.0-35.0); MCHC 34.3 g/dL (31.0-37.0); MCV 89.1 fL (80.0-100.0); Mean Platelet Volume 9.3; Monocytes # (A) 1.7 k/uL (0-1.0); Monocytes % (A) 9 %; Neutrophils % (A) 86 %; Platelet Count 194 k/uL (150-450); RBC 3.56 m/uL (3.80-5.40); RDW 15.9 % (11.5-15.5); WBC 18.6 k/uL (3.8-10.6)
--- NOTE | 2024-01-13 06:13 | P.PN ---
Subjective Progress Note Date: 01/12/24 - Reason for Consult Consult date: 01/11/24 Medical management, PEG tube replacement - History of Present Illness This is a 53-year-old female who presented to the emergency department with PEG tube accidentally being pulled out. Patient was at [facility] for rehab status post CVA a few weeks ago at [facility] and had been undergoing therapy. Patient follows with Dr. Navarro in the outpatient setting with a past medical history of asthma, kidney cancer. at the bedside reports she received a PEG tube at [facility] after the CVA. Labs reviewed and within normal limits other than a mildly elevated white count of 14.5. Patient is afebrile and does not appear septic at all clinically. Patient has had PEG tube replaced by general surgery and a Rdz bag has been placed on for drainage and being monitored as there was quite a bit of sediment noted per surgery. Home medications will be reviewed and resumed as appropriate once verified. Patient is currently n.p.o. at this time. Okay for medications per surgery through the PEG tube. 01/12/2024 Patient is seen and evaluated in follow-up with general surgery is attending. Patient is status post PEG tube replacement and noted to have some mild hypotension. Patient was given a bolus with no significant improvement we will add midodrine as needed. Patient is afebrile with no reported chest pain or shortness of breath. Plan is to return to [facility] and possibly resume tube feedings tomorrow. Monitoring previous PEG tube site for any further drainage. Review of systems: Constitutional: No reports of fatigue, fever, or chills Cardiovascular: No reports of chest pain or palpitations Respiratory: No reports of shortness of breath or cough GI: No reports of nausea, vomiting, or diarrhea : No reports of dysuria or retention Neurovascular: No reports of weakness or numbness All medications have been reviewed PHYSICAL EXAMINATION: GENERAL: The patient is alert and oriented x1-2, baseline, not in any acute distress. Well developed, elderly appearing, ill-appearing, obese HEENT: Pupils are round and equally reacting to light. EOMI. No scleral icterus. No conjunctival pallor. Normocephalic, atraumatic. No pharyngeal erythema. No thyromegaly. CARDIOVASCULAR: S1 and S2 present. No murmurs, rubs, or gallops. PULMONARY: Diminished breath sounds bilaterally otherwise chest is clear to auscultation, no wheezing or crackles. ABDOMEN: Soft, nontender, nondistended, normoactive bowel sounds. No palpable organomegaly. PEG tube noted MUSCULOSKELETAL: No joint swelling or deformity. EXTREMITIES: No cyanosis, clubbing, or pedal edema. NEUROLOGICAL: Gross neurological examination did not reveal any focal deficits. SKIN: No rashes. Assessment: PEG tube dislodged status post PEG tube replacement History of recent CVA at [facility] per family at the bedside and required a PEG tube History of kidney cancer and follows with [facility] and family reports metastasis to the brain, currently maintained on dexamethasone which will be resumed Plan is for patient to return to [facility] to continue PT/OT therapy per family Obesity with a BMI of 37.4 GI prophylaxis DVT prophylaxis Plan: Patient admitted under surgery services status post PEG tube replacement currently to drainage and decompression as there was some debris noted per surgery. Okay for meds and tube feedings will be resumed once cleared by surgery. Rdz bag connected to previous PEG tube site to monitor drainage Case management following and plan to return to [facility] on discharge for continued PT/OT therapy status post CVA Home medications reviewed and resumed as appropriate as patient is maintained on steroids as family reports she has kidney cancer with mets to the brain Recommend follow-up on labs, white count was mildly elevated although no fevers and does not appear toxic or septic in any way. Blood pressures are soft and was given a fluid bolus, will add midodrine as needed We will continue to follow with general surgery during hospitalization. Thank you kindly for this consultation. The impression and plan of care has been dictated by Bernie High, Nurse Practitioner as directed. Dr. Es MD I have performed a history and examination and MDM of this patient, discussed the same with the dictator, and agree with the dictator's assessment and plan as written ,documented as a scribe. Based on total visit time, I have performed more than 50% of the visit. Objective - Vital Signs Vital signs: Vital Signs Temp 97.6 F 01/12/24 07:00 Pulse 66 01/12/24 07:00 Resp 14 01/12/24 07:00 BP 89/56 01/12/24 07:00 Pulse Ox 97 01/12/24 07:00 FiO2 Intake & Output 01/11/24 01/12/24 01/12/24 18:59 06:59 18:59 Output Total 975 Balance -975 Output: Gastric Drainage 475 Urine 500 Other: Voiding Method Indwelling Catheter Indwelling Catheter # Bowel Movements 1 1 - Labs CBC & Chem 7: 01/12/24 15:55 01/12/24 11:54
[2024-01-13] MEDS: FERROUS SULFATE ORAL ELIXIR 300 MG/5 ML CUP PO SCH (10:06)
[2024-01-13] MEDS: BARIUM SULFATE 2% - 450 ML ORAL.SUSP BOTTLE PO PRN (11:02)
[2024-01-13 11:51] LABS: Basophils % (A) 0 %; Eosinophils % (A) 0 %; HCT 30.2 % (34.0-46.0); Lymphocytes # (A) 0.8 k/uL (1.0-4.8); Lymphocytes % (A) 7 %; MCH 28.6 pg (25.0-35.0); MCHC 33.3 g/dL (31.0-37.0); Mean Platelet Volume 9.9; Monocytes # (A) 0.8 k/uL (0-1.0); Monocytes % (A) 7 %; Neutrophils # (A) 8.8 k/uL (1.3-7.7); Neutrophils % (A) 84 %; RBC 3.51 m/uL (3.80-5.40); RDW 15.7 % (11.5-15.5); WBC 10.5 k/uL (3.8-10.6)
[2024-01-13 11:55] LABS: African American GFR (CKD) >90 (>60 ml/min/1.73 sqM); Anion Gap 4 mmol/L; Blood Urea Nitrogen 29 mg/dL (7-17); Calcium 8.9 mg/dL (8.4-10.2); Carbon Dioxide 26 mmol/L (22-30); Chloride 111 mmol/L (98-107); Glucose 132 mg/dL (74-99); Non-African American GFR(CKD) >90 (>60 ml/min/1.73 sqM); Sodium 141 mmol/L (137-145)
[2024-01-13 12:02] LABS: Potassium 4.6 mmol/L (3.5-5.1)
[2024-01-13 12:08] LABS: Platelet Count 217 k/uL (150-450)
--- NOTE | 2024-01-13 12:37 | CT ---
EXAMINATION TYPE: CT abdomen pelvis wo con CT DLP: 905.3 mGycm, Automated exposure control for dose reduction was used. DATE OF EXAM: 01/13/2024 12:23 PM COMPARISON: MR kidney 01/13/2022 CLINICAL INDICATION:Female, 53 years old with history of leak from peg tube; LEAKING PEG TUBE TECHNIQUE: Standard CT of the abdomen and pelvis following the administration of oral contrast. Jordan ited evaluation due to lack of intravenous contrast. Coronal and sagittal reformats were performed. FINDINGS: LOWER CHEST: Unremarkable ABDOMEN LIVER: Unremarkable noncontrast appearance. GALLBLADDER AND BILE DUCTS: The gallbladder is surgically absent. No biliary duct dilatation. PANCREAS: Unremarkable noncontrast appearance. SPLEEN: Unremarkable noncontrast appearance. ADRENAL GLANDS: Unremarkable noncontrast appearance of the left adrenal gland. Right adrenal gland guerra rgically absent. KIDNEYS AND URETERS: No evidence of hydronephrosis involving left kidney. Nonobstructive punctate lef t renal calculus. The right kidney surgically absent. No suspicious soft tissue within the nephrectom y bed. PELVIS BLADDER: Nondistended with Rdz catheter in place. Nondependent gas within the bladder likely from F oley catheter placement. REPRODUCTIVE: Unremarkable noncontrast appearance. ABDOMEN & PELVIS STOMACH AND BOWEL: Postsurgical changes with PEG tube placement. PEG tube appears in appropriate posi tion. There is a trace region of contrast within the anterior wall just inferior to the PEG tube with tract to the skin surface containing some gas and contrast (series 201, image 19 through 12). No fo erwin bowel wall thickening or surrounding inflammatory changes. Enteric contrast reaches the rectum. N o evidence of bowel obstruction. PERITONEUM/RETROPERITONEUM: No free fluid. Trace pneumoperitoneum along the anterior abdomen in the e pigastric region near the PEG tube. Surgical clips along the IVC. VASCULATURE: Minimal atherosclerotic calcifications are present throughout the abdominal aorta and it s branches. No evidence of aortic aneurysm. MUSCULOSKELETAL: No acute osseous abnormalities LYMPH NODES: No evidence for lymphadenopathy. SOFT TISSUE/ABDOMINAL WALL: Please refer to findings above. IMPRESSION: Postsurgical changes from PEG tube placement which appears within appropriate position. However just inferior is a tract containing some contrast and gas from the inferior aspect of the stomach body and extends to the skin surface approximately 1.9 cm directly below the PEG tube. This is most consisten t with a fistula. Additionally there is trace pneumoperitoneum in this region related to leak/fistula . [facility], , 01/13/2024 12:34 PM
--- NOTE | 2024-01-13 15:09 | P.PN ---
Subjective Progress Note Date: 01/13/24 CHIEF COMPLAINT: PEG tube malfunction HISTORY OF PRESENT ILLNESS: Patient status post new PEG tube placement. PEG tube is currently to drainage. Patient is lying in bed comfortably. BP still improvement after fluid bolus. WBC is down from 18.6-10.5 hgb 10 PHYSICAL EXAM: VITAL SIGNS: Reviewed. GENERAL: Well-developed in no acute distress. ABDOMEN: Soft. Nondistended. Peg tube to drainage NEUROLOGIC: Alert and oriented. Cranial nerves II through XII grossly intact. ASSESSMENT: 1. Malfunctioning PEG tube status post new PEG tube insertion 2. History of CVA PLAN: -Continue PEG tube to drainage -Follow-up on CT scan abdomen and pelvis results. -Hold on tube feeds at this time. Awaiting old PEG tube site to heal -Continue to monitor Physician Bleach Maker note has been reviewed by physician. Signing provider agrees with the documented findings, assessment, and plan of care. Objective - Vital Signs Vital signs: Vital Signs Temp 98.2 F 01/13/24 13:28 Pulse 66 01/13/24 13:28 Resp 19 01/13/24 13:28 BP 102/62 01/13/24 13:28 Pulse Ox 99 01/13/24 13:28 FiO2 Intake & Output 01/12/24 01/13/24 01/13/24 18:59 06:59 18:59 Intake Total 0 Output Total 550 300 750 Balance -550 -300 -750 Intake: Oral 0 Output: Gastric Drainage 325 300 Urine 225 300 450 Other: Voiding Method Indwelling Catheter Indwelling Catheter Indwelling Catheter # Bowel Movements 2 - Labs CBC & Chem 7: 01/13/24 11:17 01/13/24 11:17 Labs: Abnormal Lab Results - Last 24 Hours (Table) 01/12/24 01/13/24 01/13/24 Range/Units 15:55 11:17 11:17 WBC 18.6 H (3.8-10.6) k/uL RBC 3.56 L 3.51 L (3.80-5.40) m/uL Hgb 10.9 L 10.0 L (11.4-16.0) gm/dL Hct 31.7 L 30.2 L (34.0-46.0) % RDW 15.9 H 15.7 H (11.5-15.5) % Neutrophils # 16.0 H 8.8 H (1.3-7.7) k/uL Lymphocytes # 0.7 L 0.8 L (1.0-4.8) k/uL Monocytes # 1.7 H (0-1.0) k/uL Chloride 111 H (98-107) mmol/L BUN 29 H (7-17) mg/dL Glucose 132 H (74-99) mg/dL Assessment and Plan Assessment: 53 yo female s/p peg tube insertion ctap negative for signficant acute findings start trickle feeds Time with Patient: Less than 30
--- NOTE | 2024-01-14 09:48 | P.PN ---
Subjective Progress Note Date: 01/13/24 - Reason for Consult Consult date: 01/11/24 Medical management, PEG tube replacement - History of Present Illness This is a 53-year-old female who presented to the emergency department with PEG tube accidentally being pulled out. Patient was at [facility] for rehab status post CVA a few weeks ago at [facility] and had been undergoing therapy. Patient follows with Dr. Navarro in the outpatient setting with a past medical history of asthma, kidney cancer. at the bedside reports she received a PEG tube at [facility] after the CVA. Labs reviewed and within normal limits other than a mildly elevated white count of 14.5. Patient is afebrile and does not appear septic at all clinically. Patient has had PEG tube replaced by general surgery and a Rdz bag has been placed on for drainage and being monitored as there was quite a bit of sediment noted per surgery. Home medications will be reviewed and resumed as appropriate once verified. Patient is currently n.p.o. at this time. Okay for medications per surgery through the PEG tube. 01/12/2024 Patient is seen and evaluated in follow-up with general surgery is attending. Patient is status post PEG tube replacement and noted to have some mild hypotension. Patient was given a bolus with no significant improvement we will add midodrine as needed. Patient is afebrile with no reported chest pain or shortness of breath. Plan is to return to [facility] and possibly resume tube feedings tomorrow. Monitoring previous PEG tube site for any further drainage. 01/13/2024 Patient is seen and evaluated in follow-up this morning continues to be n.p.o. and has PEG tube to drainage along with new PEG tube and surgery ordered a CT to evaluate as the previous PEG tube site continues to drain. Holding off on tube feedings at this time until CT is read. Patient is afebrile with no reports of chest pain or shortness of breath. Patient maintained on gentle hydration and will continue for now. Review of systems: Constitutional: No reports of fatigue, fever, or chills Cardiovascular: No reports of chest pain or palpitations Respiratory: No reports of shortness of breath or cough GI: No reports of nausea, vomiting, or diarrhea : No reports of dysuria or retention Neurovascular: No reports of weakness or numbness All medications have been reviewed PHYSICAL EXAMINATION: GENERAL: The patient is alert and oriented x1-2, baseline, not in any acute distress. Well developed, elderly appearing, ill-appearing, obese HEENT: Pupils are round and equally reacting to light. EOMI. No scleral icterus. No conjunctival pallor. Normocephalic, atraumatic. No pharyngeal erythema. No thyromegaly. CARDIOVASCULAR: S1 and S2 present. No murmurs, rubs, or gallops. PULMONARY: Diminished breath sounds bilaterally otherwise chest is clear to auscultation, no wheezing or crackles. ABDOMEN: Soft, nontender, nondistended, normoactive bowel sounds. No palpable organomegaly. PEG tube noted MUSCULOSKELETAL: No joint swelling or deformity. EXTREMITIES: No cyanosis, clubbing, or pedal edema. NEUROLOGICAL: Gross neurological examination did not reveal any focal deficits. SKIN: No rashes. Assessment: PEG tube dislodged status post PEG tube replacement History of recent CVA at [facility] per family at the bedside and required a PEG tube History of kidney cancer and follows with [facility] and family reports metastasis to the brain, currently maintained on dexamethasone which will be resumed Plan is for patient to return to [facility] to continue PT/OT therapy per family Obesity with a BMI of 37.4 GI prophylaxis DVT prophylaxis Plan: Patient admitted under surgery services status post PEG tube replacement currently to drainage and decompression as there was some debris noted per surgery. Okay for meds and tube feedings will be resumed once cleared by surgery. Rdz bag connected to previous PEG tube site to monitor drainage. Continues to have drainage and CT is ordered per surgery for further evaluation of the abdomen and PEG tube sites Case management following and plan to return to [facility] on discharge for continued PT/OT therapy status post CVA Home medications reviewed and resumed as appropriate as patient is maintained on steroids as family reports she has kidney cancer with mets to the brain Recommend follow-up on labs, white count was mildly elevated although no fevers and does not appear toxic or septic in any way. White count has normalized and is 10.5, hemoglobin is stable at 10.0 and other labs within normal limits. Blood pressures are soft and was given a fluid bolus, will add midodrine as needed. Blood pressures are improved and will continue to monitor closely We will continue to follow with general surgery during hospitalization. Thank you kindly for this consultation. The impression and plan of care has been dictated by Bernie High, Nurse Practitioner as directed. Dr. Es MD I have performed a history and examination and MDM of this patient, discussed the same with the dictator, and agree with the dictator's assessment and plan as written ,documented as a scribe. Based on total visit time, I have performed more than 50% of the visit. Objective - Vital Signs Vital signs: Vital Signs Temp 97.7 F 01/14/24 07:26 Pulse 74 01/14/24 07:26 Resp 17 01/14/24 07:26 BP 125/69 01/14/24 07:26 Pulse Ox 96 01/14/24 07:26 FiO2 Intake & Output 01/13/24 01/14/24 01/14/24 18:59 06:59 18:59 Output Total 1150 1100 Balance -1150 -1100 Output: Gastric Drainage 300 600 Urine 850 500 Other: Voiding Method Indwelling Catheter Indwelling Catheter # Bowel Movements 3 - Labs CBC & Chem 7: 01/13/24 11:17 01/13/24 11:17 Labs: Abnormal Lab Results - Last 24 Hours (Table) 01/13/24 01/13/24 Range/Units 11:17 11:17 RBC 3.51 L (3.80-5.40) m/uL Hgb 10.0 L (11.4-16.0) gm/dL Hct 30.2 L (34.0-46.0) % RDW 15.7 H (11.5-15.5) % Neutrophils # 8.8 H (1.3-7.7) k/uL Lymphocytes # 0.8 L (1.0-4.8) k/uL Chloride 111 H (98-107) mmol/L BUN 29 H (7-17) mg/dL Glucose 132 H (74-99) mg/dL
[2024-01-14] MEDS ORDERED: ZINC OXIDE 20% OINT 28.4 GM TUBE TOPICAL PRN (11:03)
--- NOTE | 2024-01-14 14:44 | P.PN ---
Subjective Progress Note Date: 01/14/24 CHIEF COMPLAINT: PEG tube malfunction HISTORY OF PRESENT ILLNESS: Patient status post new PEG tube placement. Patient was started on trickle tube feeds this morning. Patient is tolerating tube feeds. Denies any abdominal pain. Denies any nausea or vomiting. She is afebrile. PHYSICAL EXAM: VITAL SIGNS: Reviewed. GENERAL: Well-developed in no acute distress. ABDOMEN: Soft. Nondistended. Peg tube site is clean dry and intact. The old PEG tube hole has clearish drainage. NEUROLOGIC: Alert and oriented. Cranial nerves II through XII grossly intact. ASSESSMENT: 1. Malfunctioning PEG tube status post new PEG tube insertion 2. History of CVA PLAN: -Continue to titrate tube feeds as per dietitian recommendations -Anticipate discharge tomorrow back to [facility] Physician Medicine Technologist note has been reviewed by physician. Signing provider agrees with the documented findings, assessment, and plan of care. Objective - Vital Signs Vital signs: Vital Signs Temp 98.3 F 01/14/24 13:10 Pulse 71 01/14/24 13:10 Resp 18 01/14/24 13:10 BP 119/64 01/14/24 13:10 Pulse Ox 97 01/14/24 13:10 FiO2 Intake & Output 01/13/24 01/14/24 01/14/24 18:59 06:59 18:59 Output Total 1150 1100 Balance -1150 -1100 Weight 98.883 kg Output: Gastric Drainage 300 600 Urine 850 500 Other: Voiding Method Indwelling Catheter Indwelling Catheter Indwelling Catheter # Bowel Movements 3 - Labs CBC & Chem 7: 01/13/24 11:17 01/13/24 11:17 Assessment and Plan Assessment: start trickle feeds, anticipate discharge tomorrow Time with Patient: Less than 30
[2024-01-14] MEDS: ACETAMINOPHEN TAB 325 MG TAB PEG/G-TUBE PRN (17:31)
[2024-01-15] MEDS ORDERED: methocarbamoL 500 MG TAB PO SCH (02:15)
[2024-01-15] MEDS: methocarbamoL 500 MG TAB PEG/G-TUBE PRN (02:20)
[2024-01-15] MEDS: ONDANSETRON 4 MG/2 ML VIAL IVP PRN (03:13)
[2024-01-15] MEDS: HYDROmorphone 1 MG/ML 1 ML SYRINGE IVP STA (08:21)
--- NOTE | 2024-01-15 09:08 | P.PN ---
Subjective Progress Note Date: 01/14/24 - Reason for Consult Consult date: 01/11/24 Medical management, PEG tube replacement - History of Present Illness This is a 53-year-old female who presented to the emergency department with PEG tube accidentally being pulled out. Patient was at [facility] for rehab status post CVA a few weeks ago at [facility] and had been undergoing therapy. Patient follows with Dr. Navarro in the outpatient setting with a past medical history of asthma, kidney cancer. at the bedside reports she received a PEG tube at [facility] after the CVA. Labs reviewed and within normal limits other than a mildly elevated white count of 14.5. Patient is afebrile and does not appear septic at all clinically. Patient has had PEG tube replaced by general surgery and a Rdz bag has been placed on for drainage and being monitored as there was quite a bit of sediment noted per surgery. Home medications will be reviewed and resumed as appropriate once verified. Patient is currently n.p.o. at this time. Okay for medications per surgery through the PEG tube. 01/12/2024 Patient is seen and evaluated in follow-up with general surgery is attending. Patient is status post PEG tube replacement and noted to have some mild hypotension. Patient was given a bolus with no significant improvement we will add midodrine as needed. Patient is afebrile with no reported chest pain or shortness of breath. Plan is to return to [facility] and possibly resume tube feedings tomorrow. Monitoring previous PEG tube site for any further drainage. 01/13/2024 Patient is seen and evaluated in follow-up this morning continues to be n.p.o. and has PEG tube to drainage along with new PEG tube and surgery ordered a CT to evaluate as the previous PEG tube site continues to drain. Holding off on tube feedings at this time until CT is read. Patient is afebrile with no reports of chest pain or shortness of breath. Patient maintained on gentle hydration and will continue for now. 01/14/2024 Patient is seen and evaluated in follow-up today and continues to have drainage noted in the Rdz bag from previous PEG tube site and underwent CT of the ab domen showing postsurgical changes from the PEG tube placement within appropriate position there is an inferior tract containing some contrast and gas from the anterior aspect of the stomach body and extends to the surface approximately 1.9 cm directly below the PEG tube most consistent with a fistula and there is a trace of pneumoperitoneum in this region related to leak/fistula. Surgery has evaluated the CT and will be started on trickle feeds and close monitoring. Patient is afebrile with no reports of shortness of breath noted. Review of systems: Constitutional: No reports of fatigue, fever, or chills Cardiovascular: No reports of chest pain or palpitations Respiratory: No reports of shortness of breath or cough GI: No reports of nausea, vomiting, or diarrhea : No reports of dysuria or retention Neurovascular: No reports of weakness or numbness All medications have been reviewed PHYSICAL EXAMINATION: GENERAL: The patient is alert and oriented x1-2, baseline, not in any acute distress. Well developed, elderly appearing, ill-appearing, obese HEENT: Pupils are round and equally reacting to light. EOMI. No scleral icterus. No conjunctival pallor. Normocephalic, atraumatic. No pharyngeal erythema. No thyromegaly. CARDIOVASCULAR: S1 and S2 present. No murmurs, rubs, or gallops. PULMONARY: Diminished breath sounds bilaterally otherwise chest is clear to auscultation, no wheezing or crackles. ABDOMEN: Soft, nontender, nondistended, normoactive bowel sounds. No palpable organomegaly. PEG tube noted MUSCULOSKELETAL: No joint swelling or deformity. EXTREMITIES: No cyanosis, clubbing, or pedal edema. NEUROLOGICAL: Gross neurological examination did not reveal any focal deficits. SKIN: No rashes. Assessment: PEG tube dislodged status post PEG tube replacement History of recent CVA at [facility] per family at the bedside and required a PEG tube History of kidney cancer and follows with [facility] and family reports metastasis to the brain, currently maintained on dexamethasone which has been resumed Plan is for patient to return to [facility] to continue PT/OT therapy per family Obesity with a BMI of 37.4 GI prophylaxis DVT prophylaxis Plan: Patient admitted under surgery services status post PEG tube replacement currently to drainage and decompression as there was some debris noted per surgery. Okay for meds and tube feedings being resumed slowly as trickle feeds to monitor closely as well CT of the abdomen was suggestive of possible fistula below the PEG tube. Case management following and plan to return to [facility] on discharge for continued PT/OT therapy status post CVA Home medications reviewed and resumed as appropriate as patient is maintained on steroids as family reports she has kidney cancer with mets to the brain Blood pressures are soft and was given a fluid bolus and improved, continue midodrine as needed. We will continue to follow with general surgery during hospitalization. Thank you kindly for this consultation. The impression and plan of care has been dictated by Bernie High, Nurse Practitioner as directed. Dr. Es MD I have performed a history and examination and MDM of this patient, discussed the same with the dictator, and agree with the dictator's assessment and plan as written ,documented as a scribe. Based on total visit time, I have performed more than 50% of the visit. Objective - Vital Signs Vital signs: Vital Signs Temp 97.7 F 01/14/24 07:26 Pulse 74 01/14/24 07:26 Resp 17 01/14/24 07:26 BP 125/69 01/14/24 07:26 Pulse Ox 96 01/14/24 07:26 FiO2 Intake & Output 01/13/24 01/14/24 01/14/24 18:59 06:59 18:59 Output Total 1150 1100 Balance -1150 -1100 Output: Gastric Drainage 300 600 Urine 850 500 Other: Voiding Method Indwelling Catheter Indwelling Catheter # Bowel Movements 3 - Labs CBC & Chem 7: 01/13/24 11:17 01/13/24 11:17 Labs: Abnormal Lab Results - Last 24 Hours (Table) 01/13/24 01/13/24 Range/Units 11:17 11:17 RBC 3.51 L (3.80-5.40) m/uL Hgb 10.0 L (11.4-16.0) gm/dL Hct 30.2 L (34.0-46.0) % RDW 15.7 H (11.5-15.5) % Neutrophils # 8.8 H (1.3-7.7) k/uL Lymphocytes # 0.8 L (1.0-4.8) k/uL Chloride 111 H (98-107) mmol/L BUN 29 H (7-17) mg/dL Glucose 132 H (74-99) mg/dL
[2024-01-15] MEDS: levETIRAcetam IV 500 MG/5 ML VIAL IVP SCH (10:59)
[2024-01-15] MEDS: DEXAMETHASONE SOD PHOSPHATE 4 MG/ML 1 ML VIAL IVP SCH (11:00)
--- NOTE | 2024-01-15 12:45 | P.PN ---
Subjective Progress Note Date: 01/15/24 CHIEF COMPLAINT: PEG tube malfunction HISTORY OF PRESENT ILLNESS: Patient status post new PEG tube placement on 01/10/24. Patient had increased pain and drainage around PEG tube site yesterday evening. Tube feeds were discontinued and peg tube placed to drainage. Patient having a brownish drainage around PEG tube. Patient did have a small bowel movement today. No vomiting reported. Afebrile. All physical exam findings were reviewed and discussed with surgeon PHYSICAL EXAM: VITAL SIGNS: Reviewed. GENERAL: Well-developed in no acute distress. ABDOMEN: Soft. Nondistended. PEG tube site with brownish drainage noted. Bolster was loose. Skin around the area is excoriated. Old PEG tube site hole with cloudy drainage. NEUROLOGIC: Alert and oriented. Cranial nerves II through XII grossly intact. ASSESSMENT: 1. Malfunctioning PEG tube status post new PEG tube insertion 2. History of CVA PLAN: -Continue to keep tube feeds on hold. -Continue PEG tube to drainage -CT scan abdomen pelvis with oral contrast ordered for tomorrow per surgeon. Contrast to be placed through PEG tube. Phys[employer] note has been reviewed by physician. Signing provider agrees with the documented findings, assessment, and plan of care. Objective - Vital Signs Vital signs: Vital Signs Temp 97.5 F L 01/15/24 07:03 Pulse 80 01/15/24 07:03 Resp 17 01/15/24 07:03 BP 146/84 01/15/24 07:03 Pulse Ox 100 01/15/24 07:03 FiO2 Intake & Output 01/14/24 01/15/24 01/15/24 18:59 06:59 18:59 Output Total 500 Balance -500 Weight 98.883 kg Output: Urine 500 Other: Voiding Method Indwelling Catheter Indwelling Catheter Indwelling Catheter - Labs CBC & Chem 7: 01/13/24 11:17 01/13/24 11:17 Assessment and Plan Assessment: 53 yo female s/p peg tube insertion -peg tube to drainage -repeat ct abd/pelv on 01/15 Time with Patient: Less than 30
[2024-01-15] MEDS: HYDROmorphone 1 MG/ML 1 ML SYRINGE IVP PRN (13:12)
--- NOTE | 2024-01-16 07:09 | P.PN ---
Subjective Progress Note Date: 01/15/24 - Reason for Consult Consult date: 01/11/24 Medical management, PEG tube replacement - History of Present Illness This is a 53-year-old female who presented to the emergency department with PEG tube accidentally being pulled out. Patient was at [facility] for rehab status post CVA a few weeks ago at [facility] and had been undergoing therapy. Patient follows with Dr. Navarro in the outpatient setting with a past medical history of asthma, kidney cancer. at the bedside reports she received a PEG tube at [facility] after the CVA. Labs reviewed and within normal limits other than a mildly elevated white count of 14.5. Patient is afebrile and does not appear septic at all clinically. Patient has had PEG tube replaced by general surgery and a Rdz bag has been placed on for drainage and being monitored as there was quite a bit of sediment noted per surgery. Home medications will be reviewed and resumed as appropriate once verified. Patient is currently n.p.o. at this time. Okay for medications per surgery through the PEG tube. 01/12/2024 Patient is seen and evaluated in follow-up with general surgery is attending. Patient is status post PEG tube replacement and noted to have some mild hypotension. Patient was given a bolus with no significant improvement we will add midodrine as needed. Patient is afebrile with no reported chest pain or shortness of breath. Plan is to return to [facility] and possibly resume tube feedings tomorrow. Monitoring previous PEG tube site for any further drainage. 01/13/2024 Patient is seen and evaluated in follow-up this morning continues to be n.p.o. and has PEG tube to drainage along with new PEG tube and surgery ordered a CT to evaluate as the previous PEG tube site continues to drain. Holding off on tube feedings at this time until CT is read. Patient is afebrile with no reports of chest pain or shortness of breath. Patient maintained on gentle hydration and will continue for now. 01/14/2024 Patient is seen and evaluated in follow-up today and continues to have drainage noted in the Rdz bag from previous PEG tube site and underwent CT of the ab domen showing postsurgical changes from the PEG tube placement within appropriate position there is an inferior tract containing some contrast and gas from the anterior aspect of the stomach body and extends to the surface approximately 1.9 cm directly below the PEG tube most consistent with a fistula and there is a trace of pneumoperitoneum in this region related to leak/fistula. Surgery has evaluated the CT and will be started on trickle feeds and close monitoring. Patient is afebrile with no reports of shortness of breath noted. 01/15/2024 Patient seen in follow-up this morning and per nursing staff patient was having increased drainage and leaking around the PEG tube and previous PEG tube site continues to be draining and general surgery following as attending has recommended holding tube feeds and repeat CT scan in the morning. Patient was able to have a bowel movement and also continues with indwelling Rdz catheter. Patient is afebrile and mostly nonverbal answers yes to a lot of questions. Will transition Keppra and dexamethasone to IV. Review of systems: Constitutional: No reports of fatigue, fever, or chills Cardiovascular: No reports of chest pain or palpitations Respiratory: No reports of shortness of breath or cough GI: No reports of nausea, vomiting, or diarrhea, reports abdominal discomfort : No reports of dysuria or retention Neurovascular: reports of weakness All medications have been reviewed PHYSICAL EXAMINATION: GENERAL: The patient is alert and oriented x1-2, baseline. Well developed, elderly appearing, ill-appearing, obese HEENT: Pupils are round and equally reacting to light. EOMI. No scleral icterus. No conjunctival pallor. Normocephalic, atraumatic. No pharyngeal erythema. No thyromegaly. CARDIOVASCULAR: S1 and S2 present. No murmurs, rubs, or gallops. PULMONARY: Diminished breath sounds bilaterally otherwise chest is clear to auscultation, no wheezing or crackles. ABDOMEN: Soft, nontender, nondistended, normoactive bowel sounds. No palpable organomegaly. PEG tube noted with continued drainage, previous PEG tube site continues to drain as well MUSCULOSKELETAL: No joint swelling or deformity. EXTREMITIES: No cyanosis, clubbing, or pedal edema. NEUROLOGICAL: Gross neurological examination did not reveal any focal deficits. Diffusely weak SKIN: No rashes. Assessment: PEG tube malfunction status post PEG tube replacement History of recent CVA at [facility] per family at the bedside and required a PEG tube History of kidney cancer and follows with [facility] and family reports metastasis to the brain, currently maintained on dexamethasone which has been resumed Obesity with a BMI of 37.4 GI prophylaxis DVT prophylaxis Plan: Patient admitted under surgery services status post PEG tube replacement currently to drainage and decompression as there was some debris noted per surgery. PEG tube continues to drain and not tolerating trickle feeds with general surgery recommending holding tube feedings and follow-up with repeat CT in the a.m. Case management following and plan to return to [facility] on discharge for continued PT/OT therapy status post CVA Will transition medications to IV including Keppra and dexamethasone. We will continue to follow with general surgery during hospitalization. Thank you kindly for this consultation. The impression and plan of care has been dictated by Bernie High, Nurse Practitioner as directed. Dr. Es MD I have performed a history and examination and MDM of this patient, discussed the same with the dictator, and agree with the dictator's assessment and plan as written ,documented as a scribe. Based on total visit time, I have performed more than 50% of the visit. Objective - Vital Signs Vital signs: Vital Signs Temp 97.5 F L 01/15/24 07:03 Pulse 80 01/15/24 07:03 Resp 17 01/15/24 07:03 BP 146/84 01/15/24 07:03 Pulse Ox 100 01/15/24 07:03 FiO2 Intake & Output 01/14/24 01/15/24 01/15/24 18:59 06:59 18:59 Output Total 500 Balance -500 Weight 98.883 kg Output: Urine 500 Other: Voiding Method Indwelling Catheter Indwelling Catheter - Labs CBC & Chem 7: 01/13/24 11:17 01/13/24 11:17
[2024-01-16] MEDS: ALBUTEROL NEBULIZED 2.5 MG/3 ML INHALATION PRN (08:22)
[2024-01-16 10:01] LABS: ALT 26 U/L (8-44); AST 37 U/L (13-35); Albumin/Globulin Ratio 1.36 Ratio (1.60-3.17); Alkaline Phosphatase 64 U/L (41-126); BUN/Creat Ratio 33.33 Ratio (12.00-20.00); Calcium 8.6 mg/dL (8.7-10.3); Carbon Dioxide 24.7 mmol/L (21.6-31.8); Chloride 111 mmol/L (96-109); Globulin 2.2 g/dL (1.6-3.3); Glucose 110 mg/dL (70-110); Magnesium 2.1 mg/dL (1.5-2.4); Potassium 4.2 mmol/L (3.5-5.5); Sodium 148 mmol/L (135-145); Total Bilirubin 0.3 mg/dL (0.3-1.2); Total Protein 5.2 g/dL (6.2-8.2)
[2024-01-16 10:06] LABS: HCT 28.4 % (37.2-46.3); HGB 8.9 g/dL (12.0-15.0); MCH 28.1 pg (27.0-32.0); MCHC 31.3 g/dL (32.0-37.0); MCV 89.6 FL (80.0-97.0); Mean Platelet Volume 11.6 FL (9.5-12.2); NRBC Per 100 WBC 0 X 10*3/uL (0.00-0.01); Platelet Count 168 X 10*3/uL (140-440); RBC 3.17 X 10*6/uL (4.10-5.20); RDW 15.7 % (11.5-14.5); WBC 5.16 X 10*3/uL (4.50-10.00)
[2024-01-16 10:07] LABS: Basophils # (A) 0 X 10*3/uL (0.00-0.10); Basophils % (A) 0 %; Eosinophils # (A) 0 X 10*3/uL (0.04-0.35); Eosinophils % (A) 0 %; Lymphocytes # (A) 0.53 X 10*3/uL (0.90-5.00); Lymphocytes % (A) 10.3 %; Monocytes # (A) 0.31 X 10*3/uL (0.20-1.00); Neutrophils # (A) 4.29 X 10*3/uL (1.80-7.70); Neutrophils % (A) 83.1 %
--- NOTE | 2024-01-16 10:19 | P.PN ---
Progress Note - Text Progress Note Date: 01/16/24 CHIEF COMPLAINT: PEG tube malfunction HISTORY OF PRESENT ILLNESS: Patient status post new PEG tube placement on 01/10/24. NAEO. PHYSICAL EXAM: VITAL SIGNS: Reviewed. GENERAL: Well-developed in no acute distress. ABDOMEN: Soft. Nondistended. PEG tube site with brownish drainage noted. Alfred ster was loose. Skin around the area is excoriated. Old PEG tube site hole with cloudy drainage. NEUROLOGIC: Alert and oriented. Cranial nerves II through XII grossly intact. ASSESSMENT: 1. Malfunctioning PEG tube status post new PEG tube insertion 2. History of CVA PLAN: -Continue to keep tube feeds on hold. -Continue PEG tube to drainage -CT scan abdomen pelvis with oral contrast ordered. Contrast to be placed through PEG tube. Ang Melgar DO [facility] [phone]
[2024-01-16] MEDS: BARIUM SULFATE 2% - 450 ML ORAL.SUSP BOTTLE PO PRN (10:38)
--- NOTE | 2024-01-16 12:20 | CT ---
EXAMINATION TYPE: CT abdomen pelvis wo con DATE OF EXAM: 01/16/2024 COMPARISON: 01/13/2024 INDICATION: Drainage from peg tube DLP: 831.00 mGycm, Automated exposure control for dose reduction was used. CONTRAST: 0 mL of Isovue 300. Study performed with Oral Contrast TECHNIQUE: Axial images were obtained from above the diaphragm to the pubic rami in the axial plane a t 5 mm thick sections. Reconstructed images are reviewed on the computer in the coronal plane. FINDINGS: Limited CT sections are obtained the lung bases. The lung bases are clear. CT ABDOMEN: There is a PEG tube present. Contrast is within the stomach. A small amount of contrast a ppears to be adjacent to the anterior peritoneal wall adjacent to the PEG tube location extravasation of contrast appears to be present. Liver: Normal Spleen: Normal Pancreas: Normal Adrenal glands: Left adrenal gland is normal. Gallbladder: Absent Kidneys: Right kidney has been resected. Left kidney appears normal without masses or cysts. There is a nonobstructing punctate renal stone in the lateral left kidney.. No hydronephrosis is present. Aorta: Vascular calcification is within the aorta. Inferior vena cava: Normal. CT PELVIS: Loops of bowel within the abdomen and pelvis are normal. There are loops of bowel which are incom pletely distended or lack oral contrast limiting their evaluation. Appendix: Normal as visualized. Urinary bladder: Decompressed with Rdz catheter. Some air is present within the urinary bladder. Genitourinary structures: Uterus is unremarkable. Adnexa appear within normal limits. Osseous structures: No suspicious lytic or sclerotic lesions. IMPRESSION: 1. There appears to be a small amount of extravasation of contrast from the stomach adjacent to the PEG tube within the abdomen within the deep to track towards the stomach. 2. Rdz catheter within urinary bladder. Some free air is within the urinary bladder related to plac ement of the catheter. [facility], Workstation: [email or web address], 01/16/2024 12:18 PM
[2024-01-16 12:48] LABS: Glucose,Whole Blood 79 mg/dL (70-110)
[2024-01-16] MEDS ORDERED: IPRATROPIUM-ALBUTEROL 3 ML NEB INHALATION PRN (13:23)
[2024-01-16] MEDS: PANTOPRAZOLE 40 MG/10 ML VIAL IVP SCH (13:30)
--- NOTE | 2024-01-16 13:39 | XR ---
EXAMINATION TYPE: XR chest 1V portable DATE OF EXAM: 01/16/2024 COMPARISON: 12/20/2023 INDICATION: CHF TECHNIQUE: Single frontal view of the chest is obtained. FINDINGS: The heart size is normal. The pulmonary vasculature is normal. Mild left lower lobe atelectasis is present and resolves on the second image. IMPRESSION: 1. No acute pulmonary process. [facility], Workstation: [facility], 01/16/2024 1:37 PM
[2024-01-16] MEDS: PIPERACILLIN-TAZOBACTAM 3.375 GM in SODIUM CHLORIDE 0.9% 100 ML IVPB SCH (14:00)
--- NOTE | 2024-01-16 14:00 | PN ---
PROGRESS NOTE DATE OF SERVICE: 01/16/2024 SUBJECTIVE: This is a 53-year-old woman who was admitted after malfunction of PEG tube and a new PEG tube insertion, had a CT scan of the abdomen today, which showed some leakage, but however, the patient became unresponsive and was confused and is slightly aggressive and the patient is being monitored closely. There is no history of any fever, or rigors. White count is elevated on the day of admission. Sodium was 148. PAST MEDICAL HISTORY: Reviewed. REVIEW OF SYSTEMS: Could not be taken. CURRENT MEDICATIONS: Reviewed include Dilaudid, dose and rest of medications noted. PHYSICAL EXAMINATION: VITAL SIGNS: Pulse is 67, blood pressure 143/77, respirations 17. HEENT: Conjunctivae normal. CARDIOVASCULAR: S1, S2. RESPIRATIONS: A few scattered rhonchi. ABDOMEN: Soft. Slight distention. LEGS: No edema. NERVOUS SYSTEM: Left hemiplegia. LABORATORY DATA: Reviewed. ASSESSMENT: 1. Status post PEG tube malfunction and PEG tube replacement. 2. Change in mental status and unresponsiveness for evaluation. 3. History of recent cerebrovascular accident with left hemiplegia. 4. 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 5. Hypernatremia. 6. History of asthma. 7. Multiple complex medical issues. RECOMMENDATIONS AND DISCUSSION: In this 53-year-old woman who presented with multiple complex medical issues. At this time, I recommend to continue the current medications, continue symptomatic treatment. Otherwise, I would obtain CT scan of the brain, neuro checks, neurology consultation, empiric antibiotics will be initiated and portable chest x-ray also will be done. Surgery to follow up with PEG tube leakage issues. Otherwise, guarded prognosis because of multiple complex medical issues. Further recommendations to follow. Neuro checks. The patient will be transferred to telemetry for further monitoring. MMODL / IJN: [id number] /
--- NOTE | 2024-01-16 14:16 | CT ---
EXAMINATION TYPE: CT brain wo con CT DLP: 1070.4 mGycm, Automated exposure control for dose reduction was used. DATE OF EXAM: 01/16/2024 2:05 PM COMPARISON: 12/20/2023. CLINICAL INDICATION: Female, 53 years old with history of confusion, TECHNIQUE: Brain: Axial CT images of the brain were obtained with coronal and sagittal reformats created and rev iewed. Contrast used: None. Oral contrast used: None. FINDINGS: Brain: Extra-axial spaces: High density blood products compatible with subarachnoid hemorrhage in the sulci of the right posterior frontal lobe series 201 image 41 Ventricular system: Within normal limits Cerebral parenchyma: Enlarging right posterior frontal lobe intracranial hemorrhage no measuring 42 x 39 previously 12 x 12 mm with surrounding vasogenic edema which is increased. There is no subfalcine herniation with leftward shift up to 11 mm. No acute intraparenchymal hemorrhage or mass effect. Th e suarez-white junction is well differentiated. Cerebellum: Unremarkable. Intracranial vasculature: unremarkable Soft tissues: Normal. Calvarium/osseous structures: No depressed skull fracture. Paranasal sinuses and mastoid air cells: Mild scattered paranasal sinus disease. Visualized orbits: Orbital contents are intact. IMPRESSION: 1. Enlarging right posterior frontal lobe intracranial hemorrhage 2. Subarachnoid hemorrhage also visualized. 3. New leftward subfalcine herniation up to 11 mm[address] Findings communicated to Dr. [facility] [place] Hospitalist protective signal operations supervisor on 01/16/2024 2:[address] Jim Fernandez. [facility], , 01/16/2024 2:13 PM
[2024-01-16] MEDS: HEPARIN SODIUM,PORCINE 5,000 UNIT/ML 1 ML VIAL SQ SCH (14:20)
[2024-01-16] MEDS: CLEVIDIPINE BUTYRATE 25 MG in EMPTY BAG 1 BAG IV SCH (15:25)
[2024-01-16] MEDS: IPRATROPIUM-ALBUTEROL 3 ML NEB INHALATION SCH (15:54)
[2024-01-16] MEDS: ACETAMINOPHEN IV (For NPO) 1,000 MG in EMPTY BAG 1 BAG IVPB SCH (16:16)
[2024-01-16] MEDS ORDERED: INSULIN ASPART (NovoLOG) 100 UNIT/ML VIAL SQ SCH (17:30)
--- NOTE | 2024-01-16 17:34 | P.CNNES ---
History of Present Illness Consult date: 01/16/24 Requesting physician: Cayden Eubanks Reason for Consult: non-responsive episode, AMS History of Present Illness: Patient is a 53-year-old right-handed female with history of metastatic renal cell carcinoma with metastasis to the brain, right kidney, and lungs, was transferred from [facility] because she fell out of bed, and pulled PEG tube out. Patient today had an episode of unresponsiveness for about 30 seconds. Patient became arousable again and then had second episode of unresponsiveness. Srinivasan lindsey's blood pressure was 122/75, heart rate 80. Stat CT head was performed. It revealed enlarging right posterior frontal lobe intracranial hemorrhage. Subarachnoid hemorrhage also visualized. New leftward subfalcine herniation up to 11 mm. I personally reviewed CT head, agree with the findings. I came to see the patient immediately. Patient's and patient's daughter also arrived. They informed me that patient was diagnosed with renal cell carcinoma on 01/17/2021. She underwent left nephrectomy in March 2021. She was doing well after surgery and started going back to work. She presented to [facility] ER on 12/20/2023 when her eyes were twitching, and had a seizure-like activity. Patient was found to have acute right posterior frontal infarct with acute hemorrhage. Patient was transferred to [facility] where she stayed for some time. Patient was diagnosed with metastasis to the brain, lungs and also involving the right kidney and above it. Family states that they were told that patient will not be a candidate for any chemotherapy or radiation unless she improves in rehab a lot. Patient's vitals are blood pressure 144/81 pulse rate 95 temperature 98.4. Blood test shows initial WBC was 14.5, but now it is 5.16. Hemoglobin is 8.9. Platelets 168. D-dimer 1.77. Sodium 148 potassium 4.2, renal functions are normal. AST is 37, ALT 26. Troponin negative. Chest x-ray revealed no acute pulmonary process. CT of the abdomen pelvis revealed there appears to be small amount of extravasation of contrast from the stomach adjacent to the PEG tube within the abdomen within the deep to track towards the stomach. Rdz catheter within urinary bladder. Some free air is within the urinary bladder related to placement of the catheter. Patient is severely aphasic at this time. Patient had expressed some headache, but not able to express at this time. Please refer to examination below. Family mentions that she is she came out of [place], she was starting to talk, having conversation and was getting better however was not able to sit unassisted. Review of Systems ROS unobtainable: due to mental status Past Medical History Past Medical History: Asthma, Cancer Additional Past Medical History / Comment(s): Kidney CA. Stroke- Left sided weakness- Dec 20 2023 History of Any Multi-Drug Resistant Organisms: MRSA Date of last positivie culture/infection: 01/07/21 MDRO Source:: mrsa abdomen Past Surgical History: Cholecystectomy Past Anesthesia/Blood Transfusion Reactions: Motion Sickness Additional Past Anesthesia/Blood Transfusion Reaction / Comment(s): occasional motion sickness Past Psychological History: No Psychological Hx Reported Smoking Status: Never smoker Past Alcohol Use History: None Reported Past Drug Use History: None Reported Medications and Allergies Home Medications Medication Instructions Recorded Confirmed Type Ferrous Sulfate [Feosol] 325 mg PEG/G-TUBE DAILY 03/17/22 01/10/24 History Levothyroxine Sodium [Synthroid] 50 mcg PEG/G-TUBE DAILY 03/17/22 01/10/24 History Loratadine 10 mg PEG/G-TUBE DAILY 03/17/22 01/10/24 History Acetaminophen Tab [Tylenol] 650 mg PEG/G-TUBE Q4H PRN 01/10/24 01/10/24 History Albuterol Nebulized [Ventolin 2.5 mg INHALATION RT-Q6H PRN 01/10/24 01/10/24 History Nebulized] Atorvastatin [Lipitor] 10 mg PEG/G-TUBE HS 01/10/24 01/10/24 History Insulin Glargine [Lantus Vial] 5 unit SQ DAILY 01/10/24 01/10/24 History Insulin Lispro See Protocol SQ Q6H 01/10/24 01/10/24 History Magnesium Hydroxide [Milk of 7,200 mg PEG/G-TUBE DAILY PRN 01/10/24 01/10/24 History Magnesia Concentrate] Melatonin 3 mg PEG/G-TUBE HS 01/10/24 01/10/24 History Menthol-Zinc Oxide Oint 1 applic TOPICAL BID 01/10/24 01/10/24 History [Calmoseptine Ointment] Na Phos,M-B/Na Phos,Di-Ba [Fleet 133 ml RECTAL DAILY PRN 01/10/24 01/10/24 History Adult] Omeprazole 2mg/Ml Solution 40 mg PEG/G-TUBE DAILY 01/10/24 01/10/24 History Sodium Bicarbonate Tab 650 mg PEG/G-TUBE TID 01/10/24 01/10/24 History Tamsulosin [Flomax] 0.4 mg PEG/G-TUBE DAILY 01/10/24 01/10/24 History bisacodyL [Dulcolax] 10 mg RECTAL DAILY PRN 01/10/24 01/10/24 History dexAMETHasone [Decadron] 4 mg PEG/G-TUBE Q6H 01/10/24 01/10/24 History levETIRAcetam ORAL SOLN [Keppra 500 mg PEG/G-TUBE Q12H 01/10/24 01/10/24 History Oral Soln] ondansetron HCL [Zofran Oral Soln] 4 mg PEG/G-TUBE Q8H PRN 01/10/24 01/10/24 History Allergies Allergy/AdvReac Type Severity Reaction Status Date / Time iodine Allergy Rash/Hives Verified 01/10/24 13:53 lactose AdvReac Unknown Verified 01/14/24 11:45 Physical Examination - Vital Signs Vital Signs: Vital Signs Temp Pulse Pulse Resp BP Pulse Ox 01/16/24 13:48 98.4 F 95 16 144/81 98 01/16/24 08:35 72 01/16/24 08:23 68 01/16/24 07:02 97.8 F 64 17 139/81 100 01/16/24 01:38 97.8 F 67 17 146/77 96 01/15/24 19:27 98.4 F 60 16 138/81 99 Intake and Output 01/16/24 01/16/24 01/16/24 06:59 14:59 22:59 Output Total 1250 Balance -1250 Output: Gastric Drainage 750 Urine 500 Other: Voiding Method Indwelling Catheter Patient is a middle aged female, in no acute distress. Patient is alert awake, makes eye contact. She has severe aphasia. Patient only says "yup". Patient not able to name pen, eyeglasses, thumb, her name, month or year. She is completely aphasic. On cranial nerve examination, pupils are equal, round and reacting to light, visual montilla could not be tested, as she just says "yup". Her face appears symmetric. Tongue protrudes to midline. On muscle strength testing, patient is completely hemiplegic on the left side, with severe spasticity, no movement distally or proximally. Patient's biceps, triceps and ferris wheel operator on the right side are normal. Her deltoid appears fairly normal at least 4+. Patient does move her right leg when checking for plantar. Deep tendon reflexes are symmetric (right/left) [] Sensory to touch cannot be assessed. Cerebellar function cannot be assessed as patient would not cooperate. Tone is severely increased on the left side of the body and bulk of muscles normal. Gait deferred.. On general examination, there is no carotid bruit or murmur, S1-S2 audible. Chest is clear on consultation. Abdomen is soft nontender. No organomegaly, bowel sounds present. Peripheral pulses are present. Mild peripheral edema. Results - Laboratory Findings CBC and BMP: 01/16/24 05:09 01/16/24 05:09 Abnormal Lab Findings: Abnormal Labs 01/11/24 01/11/24 01/12/24 09:41 09:41 11:54 WBC 14.5 H RBC 3.63 L Hgb 10.2 L D Hct 30.7 L MCHC RDW 15.9 H Neutrophils # 12.7 H Lymphocytes # 0.8 L Monocytes # Eosinophils # D-Dimer Sodium 135 L 135 L Chloride 108 H Carbon Dioxide 19 L Anion Gap BUN 36 H 32 H BUN/Creatinine Ratio Glucose 107 H 123 H Calcium AST Total Protein Albumin Albumin/Globulin Ratio 01/12/24 01/13/24 01/13/24 15:55 11:17 11:17 WBC 18.6 H RBC 3.56 L 3.51 L Hgb 10.9 L 10.0 L Hct 31.7 L 30.2 L MCHC RDW 15.9 H 15.7 H Neutrophils # 16.0 H 8.8 H Lymphocytes # 0.7 L 0.8 L Monocytes # 1.7 H Eosinophils # D-Dimer Sodium Chloride 111 H Carbon Dioxide Anion Gap BUN 29 H BUN/Creatinine Ratio Glucose 132 H Calcium AST Total Protein Albumin Albumin/Globulin Ratio 01/16/24 01/16/24 01/16/24 05:09 05:09 14:28 WBC RBC 3.17 L Hgb 8.9 L Hct 28.4 L MCHC 31.3 L RDW 15.7 H Neutrophils # Lymphocytes # 0.53 L Monocytes # Eosinophils # 0 L D-Dimer 1.77 H Sodium 148 H Chloride 111 H Carbon Dioxide Anion Gap 12.30 H BUN BUN/Creatinine Ratio 33.33 H Glucose Calcium 8.6 L AST 37 H Total Protein 5.2 L Albumin 3.0 L Albumin/Globulin Ratio 1.36 L Assessment and Plan Assessment: * Hemorrhagic cerebral metastasis, with worsening hemorrhagic lesion involving the right posterior frontal lobe. There is subarachnoid hemorrhage, and left subfalcine herniation up to 11 mm. * Metastatic renal cell carcinoma, with cerebral metastasis. * 2 episodes of unresponsiveness, likely due to focal seizure. * PEG tube malfunction, status post PEG tube replacement. * Obesity Plan: * CT scan of head was discussed in the patient's and patient's daughter in detail. Patient has significantly enlarging hemorrhagic metastatic lesion on the right side, with subfalcine herniation and 11 mm leftward shift. Patient's family mentions that they were told that patient is not a candidate for chemotherapy, or radiation unless she shows remarkable improvement. * With her worsening metastatic disease, and current intracranial hemorrhage, patient has a very poor prognosis. * We had arranged transfer to [facility] for higher level of care. However given her current condition, family decided to make patient hospice. They prefer keeping the patient in [facility] rather than transferring to [facility]. Transfer process was canceled. * Patient will be kept in the ICU until hospice has been consulted. * Hypertonic saline solution was considered, but not given because patient is going hospice. * Decadron 4 mg IV push every 6 hours. * Keep the head end of the bed elevated for 30 degree. * No antiplatelets, anticoagulants * Keep systolic blood pressure <140. * Supportive care. Consult hospice. * Discussed with primary physician and nursing staff as well. Thank you for the consult. Time with Patient: Greater than 30
[2024-01-16] MEDS: FUROSEMIDE 10 MG/ML 4 ML VIAL IV STA (19:36)
[2024-01-16] MEDS: levETIRAcetam IV 500 MG/5 ML VIAL IVP SCH (21:04)
[2024-01-16] MEDS: HYDROmorphone 1 MG/ML 1 ML SYRINGE IVP PRN (21:05)
[2024-01-17 04:01] LABS: Basophils % (A) 0 %; Eosinophils % (A) 0 %; HCT 30.3 % (34.0-46.0); HGB 9.8 gm/dL (11.4-16.0); Hypochromasia Slight; Lymphocytes # (A) 0.4 k/uL (1.0-4.8); Lymphocytes % (A) 7 %; MCH 28.6 pg (25.0-35.0); MCHC 32.4 g/dL (31.0-37.0); MCV 88.4 fL (80.0-100.0); Mean Platelet Volume 8.8; Monocytes # (A) 0.3 k/uL (0-1.0); Monocytes % (A) 4 %; Neutrophils # (A) 4.9 k/uL (1.3-7.7); Neutrophils % (A) 87 %; Platelet Count 169 k/uL (150-450); RBC 3.43 m/uL (3.80-5.40); RDW 15.5 % (11.5-15.5); WBC 5.7 k/uL (3.8-10.6)
[2024-01-17 04:05] LABS: ALT 29 U/L (4-34); AST 51 U/L (14-36); African American GFR (CKD) >90 (>60 ml/min/1.73 sqM); Albumin 2.8 g/dL (3.5-5.0); Alkaline Phosphatase 68 U/L (38-126); Anion Gap 7 mmol/L; Blood Urea Nitrogen 24 mg/dL (7-17); Calcium 8.8 mg/dL (8.4-10.2); Carbon Dioxide 26 mmol/L (22-30); Chloride 110 mmol/L (98-107); Glucose 101 mg/dL (74-99); Non-African American GFR(CKD) >90 (>60 ml/min/1.73 sqM); Potassium 3.8 mmol/L (3.5-5.1); Sodium 143 mmol/L (137-145); Total Bilirubin 0.6 mg/dL (0.2-1.3); Total Protein 5.2 g/dL (6.3-8.2)
[2024-01-17] MEDS: LORazepam 2 MG/ML INJ IV PRN (05:52)
--- NOTE | 2024-01-17 06:00 | P.PN ---
Progress Note - Text Progress Note Date: 01/17/24 CHIEF COMPLAINT: PEG tube malfunction HISTORY OF PRESENT ILLNESS: Patient status post new PEG tube placement on 01/10/24. CT-AP with Gastrograffin through PEG on 01/16/24 shows some extravasation of contrast- this is likley from previous gastrostomy site from dislodged PEG. PHYSICAL EXAM: VITAL SIGNS: Reviewed. GENERAL: Well-developed in no acute distress. ABDOMEN: Soft. Nondistended. PEG tube site with brownish drainage noted. Bolster was loose. Skin around the area is excoriated. Old PEG tube site hole with cloudy drainage. NEUROLOGIC: Alert and oriented. Cranial nerves II through XII grossly intact. ASSESSMENT: 1. Malfunctioning PEG tube status post new PEG tube insertion 2. History of CVA PLAN: -Continue to keep tube feeds on hold. -Continue PEG tube to drainage -CT scan abdomen pelvis with oral contrast showed extravasation of contrast- this extravasation likely from patients previous gastrostomy at dislodged PEG tube site. PEG bumper pulled tighter on patients abdominal wall. Leave PEG to dependent drainage today and will plan to repeat CT-AP 01/17. Ang Melgar DO [facility] [phone]
[2024-01-17] MEDS: SODIUM CHLORIDE 3%(HYPERTONIC) 500 ML IV SCH (07:51)
[2024-01-17] MEDS ORDERED: HYDROcodone/APAP 5-325MG 1 EACH TAB PO PRN (15:56)
[2024-01-17] MEDS: ONDANSETRON 4 MG/2 ML VIAL IVP PRN (18:40)
--- NOTE | 2024-01-18 01:37 | P.PN ---
Subjective Progress Note Date: 01/17/24 Patient was seen for follow-up. Patient's daughter was also present. Patient is laying diagonally in the bed,, with her head resting on the side rail. Patient's daughter believes that this position makes her comfortable. A pillow is underneath her head over the head rail. Patient offers no complaints. Patient continues to be severely aphasic. Objective - Vital Signs Vital signs: Vital Signs Temp 97.4 F L 01/17/24 07:12 Pulse 62 01/17/24 07:12 Resp 17 01/17/24 07:12 BP 145/93 01/17/24 07:12 Pulse Ox 99 01/17/24 07:12 FiO2 Intake & Output 01/16/24 01/17/24 01/17/24 18:59 06:59 18:59 Intake Total 100 400 Output Total 400 Balance -300 400 Weight 99.5 kg Intake: IV 100 100 ACETAMINOPHEN IV (For NPO 100 100 ) 1,000 mg In Empty Bag 1 bag @ 400 mls/hr IVPB Q6HR [facility] Rx#:[id number] Intake, IV Titration 300 Amount ACETAMINOPHEN IV (For NPO 100 ) 1,000 mg In Empty Bag 1 bag @ 400 mls/hr IVPB Q6HR [facility] Rx#:[id number] Sodium Chloride 0.9% 1, 200 000 ml @ 50 mls/hr IV . Q20H [facility] Rx#:[id number] Output: Urine 400 Other: Voiding Method Indwelling Catheter Indwelling Catheter Indwelling Catheter - Exam Patient continues to be severely aphasic. Examination limited because of comprehension. - Labs CBC & Chem 7: 01/17/24 03:21 01/17/24 03:21 Labs: Abnormal Lab Results - Last 24 Hours (Table) 01/16/24 01/17/24 01/17/24 Range/Units 14:28 03:21 03:21 RBC 3.43 L (3.80-5.40) m/uL Hgb 9.8 L (11.4-16.0) gm/dL Hct 30.3 L (34.0-46.0) % Lymphocytes # 0.4 L (1.0-4.8) k/uL D-Dimer 1.77 H (<0.60) mg/L FEU Chloride (98-107) mmol/L BUN (7-17) mg/dL Glucose (74-99) mg/dL Hemoglobin A1c 7.7 H (<=6.0) % AST (14-36) U/L Total Protein (6.3-8.2) g/dL Albumin (3.5-5.0) g/dL 01/17/24 Range/Units 03:21 RBC (3.80-5.40) m/uL Hgb (11.4-16.0) gm/dL Hct (34.0-46.0) % Lymphocytes # (1.0-4.8) k/uL D-Dimer (<0.60) mg/L FEU Chloride 110 H (98-107) mmol/L BUN 24 H (7-17) mg/dL Glucose 101 H (74-99) mg/dL Hemoglobin A1c (<=6.0) % AST 51 H (14-36) U/L Total Protein 5.2 L (6.3-8.2) g/dL Albumin 2.8 L (3.5-5.0) g/dL Assessment and Plan Assessment: * Hemorrhagic cerebral metastasis, with worsening hemorrhagic lesion involving the right posterior frontal lobe. There is subarachnoid hemorrhage, and left subfalcine herniation up to 11 mm. * Metastatic renal cell carcinoma, with cerebral metastasis. * 2 episodes of unresponsiveness, likely due to focal seizure. * PEG tube malfunction, status post PEG tube replacement. * Obesity Plan: * CT scan of head results were discussed with the patient's and patient's daughter in detail. Patient has significantly enlarging hemorrhagic metastatic lesion on the right side, with subfalcine herniation and 11 mm leftward shift. Patient's family mentions that they were told that patient is not a candidate for chemotherapy, or radiation unless she shows remarkable improvement. * With her worsening metastatic disease, and current intracranial hemorrhage, patient has a very poor prognosis. * We had arranged transfer to [facility] for higher level of care. However given her current condition, family decided to make patient hospice. They prefer keeping the patient in [facility] rather than transferring to [facility]. Transfer process was canceled. * Patient has been transferred to [facility], and patient is comfortable. * Decadron 4 mg IV push every 6 hours. * Keep the head end of the bed elevated for 30 degree. * No antiplatelets, anticoagulants * Keep systolic blood pressure <140. * Supportive care. Consult hospice. * Dr. Conrad Castanon to resume neurology service in the morning.
--- NOTE | 2024-01-18 04:01 | PN ---
PROGRESS NOTE DATE OF SERVICE: 01/17/2024 SUBJECTIVE: This is a 53-year-old woman who was admitted after PEG tube malfunction, PEG tube replacement, had change in mental status. The patient had a CT scan of the brain yesterday, which showed an enlarging right posterior frontal lobe intracranial hemorrhage with subarachnoid hemorrhage. The possibility of transfer was offered by neurology team; however, the family declined and opted for possibly hospice. PAST MEDICAL HISTORY: Reviewed. REVIEW OF SYSTEMS: Not taken, the patient is drowsy. CURRENT MEDICATIONS: Reviewed. PHYSICAL EXAMINATION: VITAL SIGNS: Pulse is 62, blood pressure 140/90 respirations 17. HEENT: Conjunctivae normal. NECK: No jugular venous distention. CARDIOVASCULAR: S1, S2. RESPIRATIONS: Breath sounds diminished at the bases. A few scattered rhonchi. ABDOMEN: Soft. NERVOUS SYSTEM: Diffusely weak. LABORATORY DATA: Reviewed. ASSESSMENT: 1. Intracranial hemorrhage, possibly hemorrhage with metastases on the right frontal lobe with herniation. 2. Kidney cancer with metastases. 3. Status post PEG tube malfunction, PEG tube replacement. 4. Change in mental status and unresponsiveness. 5. History of cerebrovascular accident with left hemiplegia. 6. Hyponatremia. 7. History of asthma. 8. Multiple complex medical issues. 9. No code. No CPR. 10.For hospice. RECOMMENDATIONS: Continue current management. Otherwise at this time, continue with comfort measures. Discussed with neurology. Continue with dexamethasone at this time. Otherwise, the prognosis extremely guarded because of multiple complex medical issues. Further recommendations to follow. See orders for details. Continue with Keppra. MMODL / IJN: [id number] /
[2024-01-18] MEDS: LORazepam 2 MG/ML INJ IV PRN (07:40)
[2024-01-18 12:34] VITALS: BMI 36.8
--- NOTE | 2024-01-18 13:04 | P.PN ---
Subjective Progress Note Date: 01/18/24 CHIEF COMPLAINT: PEG tube malfunction HISTORY OF PRESENT ILLNESS: Patient status post new PEG tube placement on 01/10/24. CT scan of abdomen and pelvis from 01/16/2024 shows extravasation of contrast this is likely from previous gastrostomy site from dislodged PEG tube. Patient continues to have brownish discharge from new PEG tube site. Old PEG tube site with a clearish purulent drainage. Per nursing staff dressing around PEG tube was changed 3 times last night. Per patient's they would like patient to be transitioned over to hospice and comfort care. They have a hospice meeting today. PHYSICAL EXAM: VITAL SIGNS: Reviewed. GENERAL: no acute distress. ABDOMEN: Soft. Nondistended. Tenderness around PEG tube site. Skin irritation around PEG tube site. Bolster is currently tight to skin. Minimal brown drainage noted on dressing around PEG tube site. Old PEG tube site with clear purulent drainage. NEUROLOGIC: awake and alert ASSESSMENT: 1. Malfunctioning PEG tube status post new PEG tube insertion 2. Hemorrhagic cerebral metastasis 3. Subarachnoid hemorrhage PLAN: -Continue to keep tube feeds on hold. -Continue PEG tube to drainage -Patient's family is awaiting hospice meeting today Physician Coordinating Producer note has been reviewed by physician. Signing provider agrees with the documented findings, assessment, and plan of care. Objective - Vital Signs Vital signs: Vital Signs Temp 96.6 F L 01/18/24 01:24 Pulse 64 01/18/24 07:40 Resp 16 01/18/24 07:40 BP 124/77 01/18/24 07:40 Pulse Ox 98 01/18/24 07:40 FiO2 Intake & Output 01/17/24 01/18/24 01/18/24 18:59 06:59 18:59 Intake Total 600 Output Total 550 800 Balance -550 -200 Weight 97.5 kg 97.5 kg Intake: Intake, IV Titration 600 Amount Sodium Chloride 0.9% 500 600 ml 500 ml @ 0 mls/hr IV . [employer] Rx#: [id number] Output: Urine 550 800 Other: Voiding Method Indwelling Catheter Indwelling Catheter # Bowel Movements 1 - Labs CBC & Chem 7: 01/17/24 03:21 01/17/24 03:21 Labs: Microbiology - Last 24 Hours (Table) 01/16/24 14:28 Blood Culture - Preliminary Blood
--- NOTE | 2024-01-18 17:32 | P.PN ---
Subjective Progress Note Date: 01/18/24 I am seeing the patient for the first time during this admission. Please refer to Dr. Reid's notes for further details. Seems the patient has hemorrhagic cerebral metastasis with worsening hemorrhagic lesion involving the right posterior frontal lobe. I spoke with the patient's was at bedside and he stated that they will pursue with hospice. Objective - Vital Signs Vital signs: Vital Signs Temp 97.7 F 01/18/24 14:34 Pulse 81 01/18/24 14:34 Resp 17 01/18/24 14:34 BP 135/87 01/18/24 14:34 Pulse Ox 98 01/18/24 14:34 FiO2 Intake & Output 01/17/24 01/18/24 01/18/24 18:59 06:59 18:59 Intake Total 600 Output Total 550 800 Balance -550 -200 Weight 97.5 kg 97.5 kg Intake: Intake, IV Titration 600 Amount Sodium Chloride 0.9% 500 600 ml 500 ml @ 0 mls/hr IV . [facility] Rx#: [id number] Output: Urine 550 800 Other: Voiding Method Indwelling Catheter Indwelling Catheter # Bowel Movements 1 - Exam General: Lying in bed and does not appear in acute distress. Neuro: Very limited. Is awake but not verbalizing. - Labs CBC & Chem 7: 01/17/24 03:21 01/17/24 03:21 Labs: Microbiology - Last 24 Hours (Table) 01/16/24 14:28 Blood Culture - Preliminary Blood Assessment and Plan Assessment: * Hemorrhagic cerebral metastasis, with worsening hemorrhagic lesion involving the right posterior frontal lobe. There is subarachnoid hemorrhage, and left subfalcine herniation up to 11 mm. * Metastatic renal cell carcinoma, with cerebral metastasis. * 2 episodes of unresponsiveness, likely due to focal seizure. * PEG tube malfunction, status post PEG tube replacement. * Obesity Plan: * CT scan of head results were discussed with the patient's and patient's daughter in detail. Patient has significantly enlarging hemorrhagic metastatic lesion on the right side, with subfalcine herniation and 11 mm leftward shift. Patient's family mentions that they were told that patient is not a candidate for chemotherapy, or radiation unless she shows remarkable improvement. * With her worsening metastatic disease, and current intracranial hemorrhage, patient has a very poor prognosis. * We had arranged transfer to [facility] for higher level of care. However given her current condition, family decided to make patient hospice. They prefer keeping the patient in [facility] rather than transferring to [facility]. Transfer process was canceled. * Patient has been transferred to [facility], and patient is comfortable. * Decadron 4 mg IV push every 6 hours. * Keep the head end of the bed elevated for 30 degree. * No antiplatelets, anticoagulants * Keep systolic blood pressure <140. * Supportive care. Hospice consulted. * I spoke with and wants to pursue with hospice. There is no further neurological work-up. Will sign off. Please reconsult if needed. Time with Patient: Less than 30
[2024-01-18 22:34] VITALS: RESP 16
--- NOTE | 2024-01-19 00:27 | P.PN ---
Subjective Progress Note Date: 01/18/24 - Reason for Consult Consult date: 01/11/24 Medical management, PEG tube replacement - History of Present Illness This is a 53-year-old female who presented to the emergency department with PEG tube accidentally being pulled out. Patient was at [facility] for rehab status post CVA a few weeks ago at [facility] and had been undergoing therapy. Patient follows with Dr. Navarro in the outpatient setting with a past medical history of asthma, kidney cancer. at the bedside reports she received a PEG tube at [facility] after the CVA. Labs reviewed and within normal limits other than a mildly elevated white count of 14.5. Patient is afebrile and does not appear septic at all clinically. Patient has had PEG tube replaced by general surgery and a Rdz bag has been placed on for drainage and being monitored as there was quite a bit of sediment noted per surgery. Home medications will be reviewed and resumed as appropriate once verified. Patient is currently n.p.o. at this time. Okay for medications per surgery through the PEG tube. 01/12/2024 Patient is seen and evaluated in follow-up with general surgery is attending. Patient is status post PEG tube replacement and noted to have some mild hypotension. Patient was given a bolus with no significant improvement we will add midodrine as needed. Patient is afebrile with no reported chest pain or shortness of breath. Plan is to return to [facility] and possibly resume tube feedings tomorrow. Monitoring previous PEG tube site for any further drainage. 01/13/2024 Patient is seen and evaluated in follow-up this morning continues to be n.p.o. and has PEG tube to drainage along with new PEG tube and surgery ordered a CT to evaluate as the previous PEG tube site continues to drain. Holding off on tube feedings at this time until CT is read. Patient is afebrile with no reports of chest pain or shortness of breath. Patient maintained on gentle hydration and will continue for now. 01/14/2024 Patient is seen and evaluated in follow-up today and continues to have drainage noted in the Rdz bag from previous PEG tube site and underwent CT of the ab domen showing postsurgical changes from the PEG tube placement within appropriate position there is an inferior tract containing some contrast and gas from the anterior aspect of the stomach body and extends to the surface approximately 1.9 cm directly below the PEG tube most consistent with a fistula and there is a trace of pneumoperitoneum in this region related to leak/fistula. Surgery has evaluated the CT and will be started on trickle feeds and close monitoring. Patient is afebrile with no reports of shortness of breath noted. 01/15/2024 Patient seen in follow-up this morning and per nursing staff patient was having increased drainage and leaking around the PEG tube and previous PEG tube site continues to be draining and general surgery following as attending has recommended holding tube feeds and repeat CT scan in the morning. Patient was able to have a bowel movement and also continues with indwelling Rdz catheter. Patient is afebrile and mostly nonverbal answers yes to a lot of questions. Will transition Keppra and dexamethasone to IV. 01/18/2024 Patient is seen and evaluated in follow-up today with family at the bedside. PEG tube continues to have drainage and not being used and per at the bedside her swallow has not been reevaluated since the stroke at [facility] over 3 weeks ago. Will consult speech and do a follow-up swallow eval for further evaluation. Family is discussing hospice and insurance is not excepted at [facility] and will be returning home with hospice with [facility] services. Family making arrangements including necessary equipment needed for the home. Review of systems: Constitutional: No reports of fatigue, fever, or chills Cardiovascular: No reports of chest pain or palpitations Respiratory: No reports of shortness of breath or cough GI: No reports of nausea, vomiting, or diarrhea, reports abdominal discomfort : No reports of dysuria or retention Neurovascular: reports of weakness All medications have been reviewed PHYSICAL EXAMINATION: GENERAL: The patient is alert and oriented x1-2, baseline. Well developed, elderly appearing, ill-appearing, obese HEENT: Pupils are round and equally reacting to light. EOMI. No scleral icterus. No conjunctival pallor. Normocephalic, atraumatic. No pharyngeal erythema. No thyromegaly. CARDIOVASCULAR: S1 and S2 present. No murmurs, rubs, or gallops. PULMONARY: Diminished breath sounds bilaterally otherwise chest is clear to auscultation, no wheezing or crackles. ABDOMEN: Soft, nontender, nondistended, normoactive bowel sounds. No palpable organomegaly. PEG tube noted with continued drainage, previous PEG tube site continues to drain as well MUSCULOSKELETAL: No joint swelling or deformity. EXTREMITIES: No cyanosis, clubbing, or pedal edema. NEUROLOGICAL: Gross neurological examination did not reveal any focal deficits. Diffusely weak SKIN: No rashes. Assessment: PEG tube malfunction status post PEG tube replacement History of recent CVA at [facility] per family at the bedside and required a PEG tube Change in mental status and unresponsiveness, possibly secondary to intracranial hemorrhage, possible hemorrhage with metastasis on the right frontal lobe with herniation History of kidney cancer and follows with [facility] and family reports metastasis to the brain, currently maintained on dexamethasone which has been resumed Obesity with a BMI of 37.4 GI prophylaxis DVT prophylaxis No code Plan: Patient admitted under surgery services initially status post PEG tube replacement currently to drainage and decompression as there was some debris noted per surgery. PEG tube continues to drain and not tolerating trickle feeds with general surgery recommending holding tube feedings. A consult to speech for swallow eval as patient has not been reevaluated since the stroke at [facility] over 3 weeks ago. Continue to hold tube feeds. Patient did relatively well per speech and has been transition to pured diet. Would recommend pleasure feeds on discharge with hospice Case management following and hospice consult was placed. Patient is insurance is not accepted at [facility] and will be going home with [facility] services. Hospice met with the family and they are making arrangements for discharge planning and equipment in the home. Continue medications to IV including Keppra and dexamethasone. Patient has been transition to medicine and will arrange for discharge planning. Overall prognosis is extremely poor and will be going home with hospice Likely discharge in the next 24 to 48 hours The impression and plan of care has been dictated by Bernie High, Nurse Practitioner as directed. Dr. Raimundo MD I have performed a history and examination and MDM of this patient, discussed the same with the dictator, and agree with the dictator's assessment and plan as written ,documented as a scribe. Based on total visit time, I have performed more than 50% of the visit. Objective - Vital Signs Vital signs: Vital Signs Temp 97.9 F 01/18/24 21:20 Pulse 65 01/18/24 21:20 Resp 16 01/18/24 21:20 BP 115/72 01/18/24 21:20 Pulse Ox 94 L 01/18/24 21:20 FiO2 Intake & Output 01/18/24 01/18/24 01/19/24 06:59 18:59 06:59 Intake Total 600 Output Total 800 800 Balance -200 -800 Weight 97.5 kg 97.5 kg Intake: Intake, IV Titration 600 Amount Sodium Chloride 0.9% 500 600 ml 500 ml @ 0 mls/hr IV . [facility] Rx#: [id number] Output: Urine 800 800 Other: Voiding Method Indwelling Catheter Indwelling Catheter - Labs CBC & Chem 7: 01/17/24 03:21 01/17/24 03:21 Labs: Microbiology - Last 24 Hours (Table) 01/16/24 14:28 Blood Culture - Preliminary Blood
[2024-01-19] MEDS: HYDROmorphone 0.5 MG/0.5 ML SYRINGE IVP PRN (02:13)
[2024-01-19 08:44] VITALS: BP 134/84; PULSE 75; TEMP 97.4
--- NOTE | 2024-01-19 09:49 | P.CONS ---
History of Present Illness - Reason for Consult Consult date: 01/19/24 wound care - History of Present Illness This is a 53-year-old patient being seen on 4 S. for nonhealing ulceration around PEG tube and excoriation extending to the left lower quadrant. Patient states that the ulceration has been there for the last few months. Has not had any positive treatment for resolution. Patient has open ulceration around PEG tube with minimal granulation slough and nonviable tissue present periwound shows excoriation and skin breakdown related to drainage. Patient's past medical history is significant for kidney cancer stroke to the left side and asthma. Patient is a lifelong non-smoker. Review Of Systems: Constitutional: No fever, no chills, no night sweats. No weight change. No weakness, fatigue or lethargy. No daytime sleepiness. Integumentary:reports wounds, no lesions. No rash or pruritus. No unusual bruising. No change in hair or nails. Physical exam: General Appearance: Alert, cooperative, no distress, appears stated age. Skin: See HPI all other Skin color, texture, tugor normal, no rashes or lesions. Neurologic: Alert oriented x3 Assessment: 1. Nonhealing ulceration with fat layer exposure other site Plan: 1.Apply honey gel around the PEG tube site. Cover with a gauze. Avoid adhesive. Utilize Triad to surrounding area. May reapply Triad as needed. Patient may benefit from [facility] and wound care setting. We happy to see her upon discharge. Thank you for the consultation any questions please contact the wound care center DNP note has been reviewed and discussed with Dr. Little and the impression and plan of care has been directed as dictated. Past Medical History Past Medical History: Asthma, Cancer Additional Past Medical History / Comment(s): Kidney CA. Stroke- Left sided weakness- Dec 20 2023 History of Any Multi-Drug Resistant Organisms: MRSA Year Discovered:: 01/07/21 MDRO Source:: mrsa abdomen Past Surgical History: Cholecystectomy Past Anesthesia/Blood Transfusion Reactions: Motion Sickness Additional Past Anesthesia/Blood Transfusion Reaction / Comm: occasional motion sickness Past Psychological History: No Psychological Hx Reported Smoking Status: Never smoker Past Alcohol Use History: None Reported Past Drug Use History: None Reported Medications and Allergies Home Medications Medication Instructions Recorded Confirmed Type Ferrous Sulfate [Feosol] 325 mg PEG/G-TUBE DAILY 03/17/22 01/10/24 History Levothyroxine Sodium [Synthroid] 50 mcg PEG/G-TUBE DAILY 03/17/22 01/10/24 History Loratadine 10 mg PEG/G-TUBE DAILY 03/17/22 01/10/24 History Acetaminophen Tab [Tylenol] 650 mg PEG/G-TUBE Q4H PRN 01/10/24 01/10/24 History Albuterol Nebulized [Ventolin 2.5 mg INHALATION RT-Q6H PRN 01/10/24 01/10/24 History Nebulized] Atorvastatin [Lipitor] 10 mg PEG/G-TUBE HS 01/10/24 01/10/24 History Insulin Glargine [Lantus Vial] 5 unit SQ DAILY 01/10/24 01/10/24 History Insulin Lispro See Protocol SQ Q6H 01/10/24 01/10/24 History Magnesium Hydroxide [Milk of 7,200 mg PEG/G-TUBE DAILY PRN 01/10/24 01/10/24 History Magnesia Concentrate] Melatonin 3 mg PEG/G-TUBE HS 01/10/24 01/10/24 History Menthol-Zinc Oxide Oint 1 applic TOPICAL BID 01/10/24 01/10/24 History [Calmoseptine Ointment] Na Phos,M-B/Na Phos,Di-Ba [Fleet 133 ml RECTAL DAILY PRN 01/10/24 01/10/24 History Adult] Omeprazole 2mg/Ml Solution 40 mg PEG/G-TUBE DAILY 01/10/24 01/10/24 History Sodium Bicarbonate Tab 650 mg PEG/G-TUBE TID 01/10/24 01/10/24 History Tamsulosin [Flomax] 0.4 mg PEG/G-TUBE DAILY 01/10/24 01/10/24 History bisacodyL [Dulcolax] 10 mg RECTAL DAILY PRN 01/10/24 01/10/24 History dexAMETHasone [Decadron] 4 mg PEG/G-TUBE Q6H 01/10/24 01/10/24 History levETIRAcetam ORAL SOLN [Keppra 500 mg PEG/G-TUBE Q12H 01/10/24 01/10/24 History Oral Soln] ondansetron HCL [Zofran Oral Soln] 4 mg PEG/G-TUBE Q8H PRN 01/10/24 01/10/24 History Allergies Allergy/AdvReac Type Severity Reaction Status Date / Time iodine Allergy Rash/Hives Verified 01/10/24 13:53 lactose AdvReac Unknown Verified 01/14/24 11:45 Physical Exam Vitals: Vital Signs Temp Pulse Resp BP Pulse Ox 01/19/24 07:33 97.4 F L 75 16 134/84 96 01/19/24 02:00 99.3 F 101 H 146/78 99 01/18/24 21:20 97.9 F 65 16 115/72 94 L 01/18/24 14:34 97.7 F 81 17 135/87 98 Intake and Output 01/18/24 01/19/24 01/19/24 22:59 06:59 14:59 Output Total 800 600 Balance -800 -600 Output: Urine 800 600 Other: Voiding Method Indwelling Catheter Results CBC & Chem 7: 01/17/24 03:21 01/17/24 03:21 Labs: Microbiology - Last 24 Hours (Table) 01/16/24 14:28 Blood Culture - Preliminary Blood Assessment and Plan (1) Non-pressure chronic ulcer of skin of other sites with fat layer exposed Current Visit: Yes Status: Acute Code(s): L98.492 - NON-PRS CHRONIC ULCER OF SKIN OF SITES W FAT LAYER EXPOSED SNOMED Code(s): 66801480
[2024-01-19] MEDS: HYDROPHILIC CREAM 180 GM TUBE TOPICAL SCH (11:15)
--- NOTE | 2024-01-19 13:53 | P.PN ---
Subjective Progress Note Date: 01/19/24 CHIEF COMPLAINT: PEG tube malfunction HISTORY OF PRESENT ILLNESS: Patient status post new PEG tube placement on 01/10/24. CT scan of abdomen and pelvis from 01/16/2024 shows extravasation of contrast this is likely from previous gastrostomy site from dislodged PEG tube. Patient's PEG tube is currently clamped. They are planning home with hospice today. She currently denies any pain. PHYSICAL EXAM: VITAL SIGNS: Reviewed. GENERAL: no acute distress. ABDOMEN: Soft. Nondistended. PEG tube site skin irritation. There is drainage noted on the dressing. No drainage from the old PEG tube site hole currently. It looks dryer. NEUROLOGIC: awake and alert ASSESSMENT: 1. Malfunctioning PEG tube status post new PEG tube insertion 2. Hemorrhagic cerebral metastasis 3. Subarachnoid hemorrhage PLAN: -Continue to keep tube feeds on hold. -PEG tube is clamped -Patient and family are planning on home with hospice today Physician Business Intelligence Architect note has been reviewed by physician. Signing provider agrees with the documented findings, assessment, and plan of care. Objective - Vital Signs Vital signs: Vital Signs Temp 97.4 F L 01/19/24 07:33 Pulse 75 01/19/24 07:33 Resp 16 01/19/24 10:39 BP 134/84 01/19/24 07:33 Pulse Ox 96 01/19/24 07:33 FiO2 Intake & Output 01/18/24 01/19/24 01/19/24 18:59 06:59 18:59 Intake Total 100 Output Total 800 600 Balance -800 -600 100 Weight 97.5 kg Intake: Oral 100 Output: Urine 800 600 Other: Voiding Method Indwelling Catheter Indwelling Catheter # Bowel Movements 1 - Labs CBC & Chem 7: 01/17/24 03:21 01/17/24 03:21 Labs: Microbiology - Last 24 Hours (Table) 01/16/24 14:28 Blood Culture - Preliminary Blood
--- NOTE | 2024-01-20 10:29 | P.DS ---
Providers Date of admission: 01/10/24 12:11 Expected date of discharge: 01/19/24 Attending physician: Cayden Eubanks Consults: 01/11/24 08:17 Consult Physician Routine Consulting Provider: Maulik Sosa Consult Reason/Comments: medical management, thank you Do you want consulting provider notified?: Yes 01/16/24 13:17 Consult Physician Routine Consulting Provider: Myla Reid Consult Reason/Comments: non-responsive episode, AMS Do you want consulting provider notified?: Yes 01/18/24 14:42 Consult Physician Routine Consulting Provider: Colin Guardado Consult Reason/Comments: peg tube insertion Do you want consulting provider notified?: Already Contacted Primary care physician: Jose Carlos Navarro [facility] Course: Final diagnosis PEG tube malfunction status post PEG tube replacement History of recent CVA at [facility] per family at the bedside and required a PEG tube Change in mental status and unresponsiveness, likely secondary to intracranial hemorrhage, hemorrhage with metastasis on the right frontal lobe with herniation History of kidney cancer and follows with [facility] and family reports metastasis to the brain, currently maintained on dexamethasone which has been resumed Obesity with a BMI of 37.4 GI prophylaxis DVT prophylaxis No code Discharge disposition Patient is being discharged in a stable condition with guarded prognosis to home with [facility] hospice services. Patient will follow-up with Dr. Navarro in the outpatient setting upon discharge. Patient is to continue with dexamethasone. Patient okay to continue pleasure foods. Total time taken is greater than 35 minutes. Hospital course This is a 53-year-old female who was recently admitted initially under general surgery services for PEG tube malfunction and is status post replacement. Previous PEG tube site continued to have drainage with concerns of fistula into the abdominal wall and tube feedings have been placed on hold. Patient was reevaluated by speech and tolerating pured diet and will be continued on discharge. Patient having change in mental status during hospitalization and noted to have an intracranial hemorrhage of the right frontal lobe with herniat ion. Patient is maintained on dexamethasone and will continue and family has met with hospice and are agreeable to [facility] hospice services in the home. Patient is no code and does not want any further treatment or care. Patient will be discharged home today as equipment has been arranged. Please refer to other consultation notes for further HPI. Currently no reports of chest pain, shortness of breath, or palpitations. Patient is afebrile. No reports of nausea or vomiting and patient is tolerating pured diet. Discussed with the at bedside in detail about overall prognosis and also with pleasure feeding with concerns of fistula to the abdominal wall there is high risk for extravasation with continued feeding. Patient will be pleasure foods only. Patient will be discharged home with [facility] services with overall poor prognosis. Physical exam: Gen: This is a 53-year-old female who is awake, alert and oriented x 2, baseline, well-developed, obese HEENT: Head is atraumatic, normocephalic. Pupils equal, round. Sclerae is anicteric. NECK: Supple. No JVD. No lymphadenopathy. No thyromegaly. LUNGS: Clear to auscultation. No wheezes or rhonchi. No intercostal retractions. HEART: Regular rate and rhythm. No murmur. ABDOMEN: Soft. Bowel sounds are present. No masses. No tenderness. EXTREMITIES: No pedal edema. No calf tenderness. NEUROLOGICAL: Patient is awake, alert and oriented x to. Cranial nerves 2 through 12 are grossly intact. Diffusely weak Please refer to medication reconciliation sheet for a list of medications. The impression and plan of care has been dictated by Bernie High, Nurse Practitioner as directed. Dr. Raimundo MD I have performed a history and examination and MDM of this patient, discussed the same with the dictator, and agree with the dictator's assessment and plan as written ,documented as a scribe. Based on total visit time, I have performed more than 50% of the visit. Patient Condition at Discharge: Stable Plan - Discharge Summary Discharge Rx Participant: No New Discharge Prescriptions: New fentaNYL 25MCG/HR PATCH [Duragesic 25MCG/HR] 1 patch TRANSDERM Q72H patch Zinc Oxide 20% Oint 1 applic TOPICAL TID PRN each PRN Reason: Skin Irritation HYDROcodone/APAP 5-325MG [[place] 5-325] 1 each PO Q6HR PRN tab PRN Reason: Pain Continue Albuterol Nebulized [Ventolin Nebulized] 2.5 mg INHALATION RT-Q6H PRN PRN Reason: Shortness Of Breath dexAMETHasone [Decadron] 4 mg PEG/G-TUBE Q6H levETIRAcetam ORAL SOLN [Keppra Oral Soln] 500 mg PEG/G-TUBE Q12H Insulin Lispro See Protocol SQ Q6H Insulin Glargine [Lantus Vial] 5 unit SQ DAILY Menthol-Zinc Oxide Oint [Calmoseptine Ointment] 1 applic TOPICAL BID No Action Levothyroxine Sodium [Synthroid] 50 mcg PEG/G-TUBE DAILY Melatonin 3 mg PEG/G-TUBE HS ondansetron HCL [Zofran Oral Soln] 4 mg PEG/G-TUBE Q8H PRN PRN Reason: Nausea Omeprazole 2mg/Ml Solution 40 mg PEG/G-TUBE DAILY Magnesium Hydroxide [Milk of Magnesia Concentrate] 7,200 mg PEG/G-TUBE DAILY PRN PRN Reason: Constipation Ferrous Sulfate [Feosol] 325 mg PEG/G-TUBE DAILY Loratadine 10 mg PEG/G-TUBE DAILY Sodium Bicarbonate Tab 650 mg PEG/G-TUBE TID Atorvastatin [Lipitor] 10 mg PEG/G-TUBE HS Tamsulosin [Flomax] 0.4 mg PEG/G-TUBE DAILY Na Phos,M-B/Na Phos,Di-Ba [Fleet Adult] 133 ml RECTAL DAILY PRN PRN Reason: Constipation bisacodyL [Dulcolax] 10 mg RECTAL DAILY PRN PRN Reason: Constipation Acetaminophen Tab [Tylenol] 650 mg PEG/G-TUBE Q4H PRN PRN Reason: Pain Or Fever > 100.5 Discharge Medication List Ferrous Sulfate [Feosol] 325 mg PEG/G-TUBE DAILY 03/17/22 [History] Levothyroxine Sodium [Synthroid] 50 mcg PEG/G-TUBE DAILY 03/17/22 [History] Loratadine 10 mg PEG/G-TUBE DAILY 03/17/22 [History] Acetaminophen Tab [Tylenol] 650 mg PEG/G-TUBE Q4H PRN 01/10/24 [History] Albuterol Nebulized [Ventolin Nebulized] 2.5 mg INHALATION RT-Q6H PRN 01/10/24 [History] Atorvastatin [Lipitor] 10 mg PEG/G-TUBE HS 01/10/24 [History] Insulin Glargine [Lantus Vial] 5 unit SQ DAILY 01/10/24 [History] Insulin Lispro See Protocol SQ Q6H 01/10/24 [History] Magnesium Hydroxide [Milk of Magnesia Concentrate] 7,200 mg PEG/G-TUBE DAILY PRN 01/10/24 [History] Melatonin 3 mg PEG/G-TUBE HS 01/10/24 [History] Menthol-Zinc Oxide Oint [Calmoseptine Ointment] 1 applic TOPICAL BID 01/10/24 [History] Na Phos,M-B/Na Phos,Di-Ba [Fleet Adult] 133 ml RECTAL DAILY PRN 01/10/24 [History] Omeprazole 2mg/Ml Solution 40 mg PEG/G-TUBE DAILY 01/10/24 [History] Sodium Bicarbonate Tab 650 mg PEG/G-TUBE TID 01/10/24 [History] Tamsulosin [Flomax] 0.4 mg PEG/G-TUBE DAILY 01/10/24 [History] bisacodyL [Dulcolax] 10 mg RECTAL DAILY PRN 01/10/24 [History] dexAMETHasone [Decadron] 4 mg PEG/G-TUBE Q6H 01/10/24 [History] levETIRAcetam ORAL SOLN [Keppra Oral Soln] 500 mg PEG/G-TUBE Q12H 01/10/24 [History] ondansetron HCL [Zofran Oral Soln] 4 mg PEG/G-TUBE Q8H PRN 01/10/24 [History] HYDROcodone/APAP 5-325MG [[place] 5-325] 1 each PO Q6HR PRN tab 01/19/24 [Rx] Zinc Oxide 20% Oint 1 applic TOPICAL TID PRN each 01/19/24 [Rx] fentaNYL 25MCG/HR PATCH [Duragesic 25MCG/HR] 1 patch TRANSDERM Q72H patch 01/19/24 [Rx] Follow up Appointment(s)/Referral(s): [facility] [NON-STAFF] - As Needed Jose Carlos Navarro DO [Primary Care Provider] - 1-2 days [facility] [NON-STAFF] - As Needed Activity/Diet/Wound Care/Special Instructions: Patient is going home with hospice Activity as tolerated Continue with pleasure feeds Continue pain management per Candy Discharge Disposition: HOME WITH HOSPICE
--- NOTE | 2024-02-11 11:34 | P.OP ---
Date of Procedure: 01/10/24 Preoperative Diagnosis: pegtube malfunction Postoperative Diagnosis: pegtube malfunction Procedure(s) Performed: peg tube insertion Anesthesia: local Surgeon: Colin Guardado Pathology: none sent Condition: stable Disposition: PACU Indications for Procedure: patient removed her own pegtube Operative Findings: peg tube previous site, not patent Description of Procedure: The patient was brought to the endoscopy suite where a timeout was performed. Once the patient was sedated and adult sized Olympus scope was used to traverse the mouth, esophagus and stomach, where the previous peg tube site was observed. This did not appear to be patent at the time so we chose, a different location for the new peg tube. An incision was made with the most light intensity in the left upper quadrant, and then an introducer needle was used. The needle was used to gain access into the stomach after stomach was insufflated. A guidewire was placed. And the wire was removed out of the patients stomach and esophagus. The guidewire was in latched on to the peg tube and the peg tube was pulled through the mouth esophagus into the stomach. This was fixated on the skin and the patient tolerated the procedure well and was transported to PACU and stable condition.
== END 2024-01-19 14:33 | disposition hospice, home (50) | DRG 393 ==
LOC: EC 09:35 → OBSVTOIN 12:11 → 6NMEDSUR 12:11 → 4SSUR 14:53 → 2SICU 01-16 15:28 → 4SSUR 01-16 23:01
PROVIDERS: ADMIT Hospitalist; ATTEND Hospitalist
PROC: 0DH63UZ Insertion of Feeding Device into Stomach, Percutaneous Approach (ICD-10-PCS; principal; 2024-01-10 12:30)
DX: K94.23 Gastrostomy malfunction (principal); G93.5 Compression of brain; I60.9 Nontraumatic subarachnoid hemorrhage, unspecified; C79.31 Secondary malignant neoplasm of brain; I69.354 Hemiplegia and hemiparesis following cerebral infarction affecting left non-dominant side; R47.01 Aphasia; E87.0 Hyperosmolality and hypernatremia; E87.1 Hypo-osmolality and hyponatremia; C78.00 Secondary malignant neoplasm of unspecified lung; C79.72 Secondary malignant neoplasm of left adrenal gland; E66.9 Obesity, unspecified; Z51.5 Encounter for palliative care; R56.9 Unspecified convulsions; Z68.37 Body mass index [BMI] 37.0-37.9, adult; J45.909 Unspecified asthma, uncomplicated; Z85.528 Personal history of other malignant neoplasm of kidney; L98.492 Non-pressure chronic ulcer of skin of other sites with fat layer exposed; Z79.890 Hormone replacement therapy; Z79.899 Other long term (current) drug therapy; Z90.5 Acquired absence of kidney; Z91.041 Radiographic dye allergy status; Z91.011 Allergy to milk products; Z90.49 Acquired absence of other specified parts of digestive tract; Z86.14 Personal history of Methicillin resistant Staphylococcus aureus infection
CPT/HCPCS: 43246; 70450; 71045; 74176; 80048; 80053; 83036; 83735; 83880; 84145; 84484; 85025; 85379; 87040; 94640; 99285